=== PATIENT | male | born 1960 | race Caucasian/White ===

== ENCOUNTER 2022-07-12 11:50 | Inpatient (IN) ==
[2022-07-12] MEDS ORDERED: IOPAMIDOL 100 ML BOTTLE IV ONE (11:51)
--- NOTE | 2022-07-12 12:00 | Emergency Department Note ---
HPI General Chief complaint: Chest Pain Stated complaint: fever,cough Time Seen by Provider: 07/12/22 11:59 Source: patient Mode of arrival: ambulatory History of Present Illness HPI Narrative: Narrative: Patient is a 61-year-old male with a complex history who presents to the emergency department due to chest pain, shortness of breath, cough, and nasal congestion. Patient's daughter is an [employer] and was concerned for the possibility of sepsis, so instructed him to come to the emergency department. He states that he has end-stage renal disease and is on dialysis Tuesday, Tuesday, and Tuesday. He states he supposed to have dialysis at 1 PM, but that his daughter told him to come to the emergency department, so decided to, instead of going to dialysis. He states that his symptoms began over the weekend and have continued. He endorses general malaise, lightheadedness, nasal congestion, productive cough of green sputum, and chest pain. He states that the chest pain is a heaviness in the center of his chest without radiation. He denies palliative or provocative factors. He also endorses mild abdominal pain. He endorses pain with urination as well. He denies any other symptoms at this time. Related Data Home Medications Medication Instructions Recorded Confirmed aspirin 325 mg tablet 325 mg PO QDAY 10/20/21 06/10/22 lancets 30 gauge (BD Ultra-Fine II 10/20/21 06/10/22 Lancets) atorvastatin 80 mg tablet 80 mg PO QPM 05/24/22 06/10/22 gabapentin 100 mg capsule 100 mg PO QPM 05/24/22 06/10/22 losartan 100 mg tablet 100 mg PO QDAY PRN Hypertension 05/24/22 06/10/22 omeprazole 20 mg capsule,delayed 20 mg PO QAM 05/24/22 06/10/22 release pen needle, diabetic 32 gauge x 05/24/22 06/10/22 5/32" verapamil 180 mg tablet,extended 180 mg PO QDAY PRN Increased Blood 05/24/22 06/10/22 release Pressure Previous Rx's Medication Instructions Recorded gentamicin 0.1 % topical cream 1 applic topical QDAY #15 grams 12/21/21 tramadol 50 mg tablet 25 mg PO BID PRN pain #30 tabs 03/01/22 carvedilol 25 mg tablet (Coreg) 25 mg PO BID #180 tabs 03/16/22 glipizide 10 mg tablet 10 mg PO BID #180 tabs 03/16/22 insulin lispro 100 unit/mL 15 unit (0.15 mL) subcut TID #15 mL 03/16/22 subcutaneous pen (Humalog KwikPen (U-100) Insulin) torsemide 100 mg tablet 100 mg PO BID #180 tabs 03/16/22 Lantus Solostar U-100 Insulin 100 37 unit (0.37 mL) subcut QAM #15 mL 03/24/22 unit/mL (3 mL) subcutaneous pen (insulin glargine) oxycodone-acetaminophen 10 mg-325 1 tab PO Q4H PRN Pain #30 tabs 05/26/22 mg tablet (Endocet) verapamil 180 mg 24 hr 180 mg PO QDAY #90 caps 05/31/22 capsule,extended release blood sugar diagnostic (True #100 ea 06/07/22 Metrix Glucose Test Strip) Allergies Allergy/AdvReac Type Severity Reaction Status Date / Time No Known Drug Allergies Allergy Verified 06/10/22 11:43 Review of Systems ROS ROS Narrative: Narrative: Constitutional: Reports fever and chills; Denies weakness Eyes: Denies eye pain or vision change ENT ED: Reports rhinorrhea; Denies throat pain Cardiovascular: Reports chest pain; Denies dyspnea on exertion, orthopnea or edema Respiratory: Reports shortness of breath and cough Gastrointestinal: Reports abdominal pain; Denies nausea, vomiting, diarrhea, constipation, hematochezia or melena Genitourinary: Reports dysuria; Denies frequency or hematuria Musculoskeletal: Denies back pain or myalgia Integumentary: Denies rash or lesions Neurological: Denies headache, weakness, numbness, confusion, abnormal gait or dizziness [facility] Narrative Patient History Narrative: Narrative: Medical/Surgical/Family History All Active Problems (Updated 07/12/22 @ 15:52 by Ranjeet Watson MD) Sepsis (Acute) Acute UTI (Acute) Encounter for long-term (current) use of medications (Chronic) Elbow pain, left (Chronic) Pain in right elbow (Chronic) Rib pain on right side (Chronic) Blurred vision (Chronic) Hypertension (Chronic) Tubulovillous adenoma of colon (Chronic) Anemia (Chronic) Abdominal pain, right upper quadrant (Chronic) Colonic polyp (Chronic) Hemorrhoids (Chronic) Benign skin lesion of multiple sites (Chronic) Hyperlipidemia (Chronic) Proteinuria (Chronic) Muscle contraction headache (Chronic) Cervical muscle strain (Chronic) Headache (Chronic) History of colonoscopy (Chronic ~11/06/19) Elevated alkaline phosphatase level (Chronic) Cardiomegaly (Chronic) Fatigue (Chronic) Other dysphagia (Chronic) Lower extremity edema (Chronic) Other obesity due to excess calories (Chronic) Cerebellar stroke (Chronic) Hypokalemia (Chronic) Dysphagia (Chronic) Sleep apnea (Chronic) Seasonal allergic rhinitis (Chronic) Elevated prostate specific antigen (PSA) (Chronic) GERD (gastroesophageal reflux disease) (Chronic) Diabetic neuropathy (Chronic) Diabetes mellitus, insulin dependent (IDDM), uncontrolled (Acute) Edema (Acute) Ascites (Acute) Liver disease (Acute) Other fluid overload (Chronic) Bilateral calf pain (Acute) Back pain (Acute) Abdominal pain (Acute) RUQ abdominal pain (Acute) Screening for malignant neoplasm of colon (Acute) Peritonitis associated with peritoneal dialysis (Acute) Peritoneal dialysis catheter dysfunction (Chronic) ESRD on hemodialysis (Chronic) ESRD (end stage renal disease) (Acute) Bronchitis (Acute) Dialysis patient (Acute) Medical History (Updated 07/12/22 @ 15:52 by Ranjeet Watson MD) Abdominal pain Abdominal pain, right upper quadrant Anemia Benign skin lesion of multiple sites Blurred vision Cardiomegaly Cerebellar stroke Cervical muscle strain Colonic polyp Diabetic neuropathy Dysphagia Elbow pain, left Elevated alkaline phosphatase level Elevated prostate specific antigen (PSA) Encounter for long-term (current) use of medications Fatigue GERD (gastroesophageal reflux disease) Headache Hemorrhoids Hyperlipidemia Hypertension Hypokalemia Lower extremity edema Muscle contraction headache Other dysphagia Other obesity due to excess calories Pain in right elbow Proteinuria Rib pain on right side RUQ abdominal pain Screening for malignant neoplasm of colon Seasonal allergic rhinitis Sleep apnea Tubulovillous adenoma of colon Surgical History (Updated 06/10/22 @ 07:54 by Naida Del Rio CMA) History of abdominal surgery (12/2020) peritoneal dialysis catheter History of appendectomy History of colonoscopy (~11/06/19) 04/06/17 Dr. Lomeli - Colon polyp x 4, Hemorrhoids. History of surgery 05/26/2022-removal of peritoneal dialysis catheter Family History Father , Age 65 High blood pressure Heart attack Mother High blood pressure Social History Smoking Status: Never smoker Alcohol Intake Frequency: does not drink Substance Use: does not use Exam Narrative Narrative: Narrative: General General appearance: Present alert and in no apparent distress; Absent anxious, appears intoxicated or sleepy Head Head: Present atraumatic and normocephalic Eye Eye: Present EOMI; Absent scleral icterus or nystagmus ENT ENT: Present mucous membranes moist; Absent nasal congestion Neck Neck: Present full ROM and trachea midline Chest Chest: Present normal inspection and symmetric chest wall rise; Absent tenderness Respiratory Respiratory: Present normal lung sounds bilaterally; Absent respiratory distress or accessory muscle use Cardiovascular Cardiovascular: Present regular rate, normal rhythm and normal heart sounds Adbominal Abdominal: Present soft, tenderness and normal bowel sounds; Absent distention, guarding, rebound or rigidity Extremities Extremities: Present normal inspection and full ROM; Absent tenderness Back Back: Present normal inspection and full ROM; Absent CVA tenderness (R) or CVA tenderness (L) Neurological Neurological: Present alert and oriented X3 Psychiatric Psychiatric: Present normal affect and normal mood Skin Skin: Present warm (WNL), dry and normal color Course Vital Signs Vital signs: Vital Signs Temperature 99.0 F 07/12/22 11:53 Pulse Rate 95 H 07/12/22 11:53 Respiratory Rate 18 07/12/22 11:53 Blood Pressure 135/72 07/12/22 11:53 Pulse Oximetry (%) 98 07/12/22 11:53 Oxygen Delivery Method Room Air 07/12/22 11:53 Temperature 99.0 F 07/12/22 11:53 Pulse Rate 80 07/12/22 15:32 Respiratory Rate 13 07/12/22 15:32 Blood Pressure 134/65 07/12/22 15:32 Pulse Oximetry (%) 98 07/12/22 11:53 Oxygen Delivery Method Room Air 07/12/22 12:42 [facility] MDM Narrative Medical decision making narrative: Narrative: Patient is a 61-year-old male who presents to the emergency department due to concern for sepsis. Differential diagnoses include pneumonia, COVID, influenza, urinary tract infection. Patient's labs are consistent with a urinary tract infection. Labs and vitals are consistent with sepsis with UTI as the source. Troponin is within normal limits. Patient's chest x-ray does not demonstrate pneumonia. CT scan of the abdomen and pelvis is not demonstrate any acute findings of infectious source. Patient has received vancomycin and ceftriaxone. Due to patient's need for dialysis I will speak with Dr. Liu and then to Dr. Rincon to admit for urosepsis. I have spoken with Dr. Liu who is on board with patient being admitted and inpatient dialysis. I have spoken with Dr. Kaba and he has agreed to see and evaluate patient for admission. Lab Data 07/12/22 12:30 07/12/22 12:30 Labs: Lab Results 07/12/22 07/12/22 07/12/22 Range/Units 12:30 12:30 12:30 WBC 25.2 H (4.5-11.0) K/mcL RBC 3.31 L (4.63-6.08) M/mcL Hgb 9.6 L (13.7-17.5) g/dL Hct 29.4 L (40.1-51.0) % POC Hct (41-55) MCV 88.8 (80.0-100.0) fL MCH 29.0 (26.0-34.0) pg MCHC 32.7 (31.0-36.0) g/dL RDW 14.2 (11.5-14.5) % Plt Count 137 L (140-440) K/mcL MPV 11.7 (8.8-12.5) fL Immature Gran % (Auto) 1.2 H (0.0-0.5) % Neut % (Auto) 82.5 H (38.0-78.0) % Lymph % (Auto) 8.5 L (15.5-49.0) % [place] % (Auto) 7.3 (1.0-12.0) % Eos % (Auto) 0.1 (0.0-7.0) % Baso % (Auto) 0.4 (0.0-2.0) % Lymph # (Auto) 2.14 (1.50-4.80) K/mcL [place] # (Auto) 1.84 H (0.10-0.90) K/mcL Eos # (Auto) 0.03 (0.00-0.70) K/mcL Baso # (Auto) 0.09 (0.00-0.30) K/mcL Immature Gran # 0.30 H (0.00-0.05) K/mcl Absolute Neutrophils 20.80 H (1.80-8.00) K/mcL POC VBG pH (7.32-7.42) POC VBG pCO2 at Temp (41-51) POC VBG pO2 (25-40) POC VBG HCO3 (24-28) POC VBG Total CO2 (25-29) POC Venous O2 Sat (40-70) POC VBG Base Excess (-2-2) VBG Lactic Acid (0.5-2) POC Sodium (133-145) POC Potassium (3.3-5.1) Potassium 5.9 H* (3.3-5.1) mmol/L POC Chloride (96-108) POC Total CO2 (22-30) POC BUN (6-20) POC Creatinine (0.6-1.2) POC Glucose (70-105) POC WB Ioniz Calcium (1.16-1.32) Procalcitonin 2.62 H (<0.10) ng/mL Urine Color Urine Appearance (Clear) Urine pH (5.0-9.0) Ur Specific [place] (1.000-1.035) Urine Protein (Negative) mg/dL Urine Glucose (UA) (Negative) mg/dL Urine Ketones (Negative) mg/dL Urine Occult Blood (Negative) mg/dL Urine Nitrate (Negative) Urine Bilirubin (Negative) mg/dL Urine Urobilinogen mg/dL Ur Leukocyte Esterase (Negative) /uL Urine RBC (0-3) /hpf Urine WBC (0-4) /hpf Ur Squamous Epith Cells (0-4) /hpf Urine Bacteria (0) /hpf Ur Culture Indicated? POC Troponin I (0.00-0.08) 07/12/22 07/12/22 07/12/22 Range/Units 12:34 12:42 12:55 WBC (4.5-11.0) K/mcL RBC (4.63-6.08) M/mcL Hgb (13.7-17.5) g/dL Hct (40.1-51.0) % POC Hct 29.0 L (41-55) MCV (80.0-100.0) fL MCH (26.0-34.0) pg MCHC (31.0-36.0) g/dL RDW (11.5-14.5) % Plt Count (140-440) K/mcL MPV (8.8-12.5) fL Immature Gran % (Auto) (0.0-0.5) % Neut % (Auto) (38.0-78.0) % Lymph % (Auto) (15.5-49.0) % [place] % (Auto) (1.0-12.0) % Eos % (Auto) (0.0-7.0) % Baso % (Auto) (0.0-2.0) % Lymph # (Auto) (1.50-4.80) K/mcL [place] # (Auto) (0.10-0.90) K/mcL Eos # (Auto) (0.00-0.70) K/mcL Baso # (Auto) (0.00-0.30) K/mcL Immature Gran # (0.00-0.05) K/mcl Absolute Neutrophils (1.80-8.00) K/mcL POC VBG pH 7.40 (7.32-7.42) POC VBG pCO2 at Temp 35.3 L (41-51) POC VBG pO2 57 H (25-40) POC VBG HCO3 22.1 L (24-28) POC VBG Total CO2 23.0 L (25-29) POC Venous O2 Sat 89.0 H (40-70) POC VBG Base Excess -3.0 L (-2-2) VBG Lactic Acid 1.1 (0.5-2) POC Sodium 130 L (133-145) POC Potassium 5.8 H (3.3-5.1) Potassium (3.3-5.1) mmol/L POC Chloride 98 (96-108) POC Total CO2 23.0 (22-30) POC BUN 88 H (6-20) POC Creatinine 10.9 H* (0.6-1.2) POC Glucose 190 H (70-105) POC WB Ioniz Calcium 1.04 L (1.16-1.32) Procalcitonin (<0.10) ng/mL Urine Color Yellow Urine Appearance Turbid A (Clear) Urine pH 5.0 (5.0-9.0) Ur Specific [place] 1.018 (1.000-1.035) Urine Protein >=500 A (Negative) mg/dL Urine Glucose (UA) 50 A (Negative) mg/dL Urine Ketones Negative (Negative) mg/dL Urine Occult Blood 0.03 (Negative) mg/dL Urine Nitrate Negative (Negative) Urine Bilirubin Negative (Negative) mg/dL Urine Urobilinogen Negative mg/dL Ur Leukocyte Esterase 500 A (Negative) /uL Urine RBC 8 H (0-3) /hpf Urine WBC > 182 H (0-4) /hpf Ur Squamous Epith Cells 0 (0-4) /hpf Urine Bacteria None (0) /hpf Ur Culture Indicated? yes POC Troponin I (0.00-0.08) 07/12/22 Range/Units 15:25 WBC (4.5-11.0) K/mcL RBC (4.63-6.08) M/mcL Hgb (13.7-17.5) g/dL Hct (40.1-51.0) % POC Hct (41-55) MCV (80.0-100.0) fL MCH (26.0-34.0) pg MCHC (31.0-36.0) g/dL RDW (11.5-14.5) % Plt Count (140-440) K/mcL MPV (8.8-12.5) fL Immature Gran % (Auto) (0.0-0.5) % Neut % (Auto) (38.0-78.0) % Lymph % (Auto) (15.5-49.0) % [place] % (Auto) (1.0-12.0) % Eos % (Auto) (0.0-7.0) % Baso % (Auto) (0.0-2.0) % Lymph # (Auto) (1.50-4.80) K/mcL [place] # (Auto) (0.10-0.90) K/mcL Eos # (Auto) (0.00-0.70) K/mcL Baso # (Auto) (0.00-0.30) K/mcL Immature Gran # (0.00-0.05) K/mcl Absolute Neutrophils (1.80-8.00) K/mcL POC VBG pH (7.32-7.42) POC VBG pCO2 at Temp (41-51) POC VBG pO2 (25-40) POC VBG HCO3 (24-28) POC VBG Total CO2 (25-29) POC Venous O2 Sat (40-70) POC VBG Base Excess (-2-2) VBG Lactic Acid (0.5-2) POC Sodium (133-145) POC Potassium (3.3-5.1) Potassium (3.3-5.1) mmol/L POC Chloride (96-108) POC Total CO2 (22-30) POC BUN (6-20) POC Creatinine (0.6-1.2) POC Glucose (70-105) POC WB Ioniz Calcium (1.16-1.32) Procalcitonin (<0.10) ng/mL Urine Color Urine Appearance (Clear) Urine pH (5.0-9.0) Ur Specific [place] (1.000-1.035) Urine Protein (Negative) mg/dL Urine Glucose (UA) (Negative) mg/dL Urine Ketones (Negative) mg/dL Urine Occult Blood (Negative) mg/dL Urine Nitrate (Negative) Urine Bilirubin (Negative) mg/dL Urine Urobilinogen mg/dL Ur Leukocyte Esterase (Negative) /uL Urine RBC (0-3) /hpf Urine WBC (0-4) /hpf Ur Squamous Epith Cells (0-4) /hpf Urine Bacteria (0) /hpf Ur Culture Indicated? POC Troponin I 0.02 (0.00-0.08) ED POC Tests ED POC Tests: BUTCH - Influenza A Negative BUTCH - Influenza B Negative BUTCH - SARS Antigen Negative Discharge Plan Patient/Caregiver Discharge Instructions Pt seen by [employer]/PA only: No Clinical Impression: Sepsis, Acute UTI Patient Disposition: Xfer As Inpt ([facility]) Follow up with: Margoth Azevedo ARNP [Primary Care Provider] - Prescriptions: No Action gentamicin 0.1 % cream 1 applic topical QDAY Qty: 15 3RF tramadol 50 mg tablet 25 mg PO BID PRN (Reason: pain) Qty: 30 0RF insulin glargine [Lantus Solostar U-100 Insulin] 100 unit/mL (3 mL) insulin pen 37 unit subcut QAM Qty: 15 3RF verapamil 180 mg capsule,ext rel. pellets 24 hr 180 mg PO QDAY Qty: 90 3RF (DME) True Metrix Glucose Test Strip Strip See Rx Instructions .Route Qty: 100 1RF Rx Instructions: Use to check blood glucose twice daily fasting and once after largest meal aspirin 325 mg tablet 325 mg PO QDAY (DME) lancets [BD Ultra-Fine II Lancets] 30 gauge misc See Rx Instructions .Route Rx Instructions: As directed insulin lispro [Humalog KwikPen Insulin] 100 unit/mL insulin pen 15 unit subcut TID Qty: 15 3RF Rx Instructions: uses with sliding scale carvedilol [Coreg] 25 mg tablet 25 mg PO BID Qty: 180 2RF Rx Instructions: must administer with a meal/food glipizide 10 mg tablet 10 mg PO BID Qty: 180 3RF torsemide 100 mg tablet 100 mg PO BID Qty: 180 4RF verapamil 180 mg Tablet Extended Release 180 mg PO QDAY PRN (Reason: Increased Blood Pressure) losartan 100 mg Tablet 100 mg PO QDAY PRN (Reason: Hypertension) (DME) pen needle, diabetic 32 gauge x 5/32" needle MISCELLANEOUS QDAY atorvastatin 80 mg tablet 80 mg PO QPM omeprazole 20 mg capsule,delayed release(DR/EC) 20 mg PO QAM gabapentin 100 mg capsule 100 mg PO QPM oxycodone-acetaminophen [Endocet] 10-325 mg tablet 1 tab PO Q4H PRN (Reason: Pain) Qty: 30 0RF
[2022-07-12] MEDS ORDERED: cefTRIAXone 1 GM VIAL IV ONE ×2 (12:17→19:14)
[2022-07-12 12:48] LABS: POC Calcium, Ionized 1.04 (1.16-1.32); POC Creatinine 10.9 (0.6-1.2); POC Potassium 5.8 (3.3-5.1)
[2022-07-12 13:28] LABS: Basophils # (Auto) 0.09 K/mcL (0.00-0.30); Basophils % (Auto) 0.4 % (0.0-2.0); Eosinophils # (Auto) 0.03 K/mcL (0.00-0.70); Eosinophils % (Auto) 0.1 % (0.0-7.0); Hematocrit 29.4 % (40.1-51.0); Hemoglobin 9.6 g/dL (13.7-17.5); Lymphocytes # (Auto) 2.14 K/mcL (1.50-4.80); Lymphocytes % (Auto) 8.5 % (15.5-49.0); Mean Cell Volume 88.8 fL (80.0-100.0); Mean Corpuscular HGB Conc 32.7 g/dL (31.0-36.0); Mean Platelet Volume 11.7 fL (8.8-12.5); Monocytes # (Auto) 1.84 K/mcL (0.10-0.90); Monocytes % (Auto) 7.3 % (1.0-12.0); Neutrophils % (Auto) 82.5 % (38.0-78.0); Platelet Count 137 K/mcL (140-440); RBC 3.31 M/mcL (4.63-6.08); Red Cell Distribution Width 14.2 % (11.5-14.5); WBC 25.2 K/mcL (4.5-11.0)
[2022-07-12 13:47] LABS: Appearance,Urine TURBID (Clear); Bilirubin,Urine Negative (Negative); Color,Urine YELLOW; Culture Indicated,Urine yes; Glucose,Urine (UA) 50 mg/dL (Negative); Ketones,Urine Negative (Negative); Leukocyte Esterase,Urine 500 /uL (Negative); Nitrate,Urine Negative (Negative); Protein,Urine >=500 mg/dL (Negative); Specific Gravity,Urine 1.018 (1.000-1.035); Urine Blood 0.03 mg/dL (Negative); Urine RBC 8 /hpf (0-3); Urine Squamous Epithelial Cell 0 /hpf (0-4); Urine WBC > 182 /hpf (0-4); Urobilinogen,Urine Negative
[2022-07-12] MEDS ORDERED: CALCIUM GLUCONATE 4.65 MEQ in DEXTROSE 5% IN WATER 50 ML IV ONE (14:03)
--- NOTE | 2022-07-12 14:07 | Cat Scan Report ---
CLINICAL INFORMATION: Abdominal pain COMPARISON: None. TECHNIQUE: Following enteric contrast, 80 cc of Isovue-370 were injected intravenously, and 60 seconds later, 0.625 mm helical slices were obtained from the mid heart through the subtrochanteric regions. Following reconstruction, 2.5 mm sagittal, coronal and axial reformatted images were processed and reviewed at bone, lung and soft tissue windows. Five minutes later, 0.625 mm helical slices were obtained from the mid heart through the kidneys and viewed at soft tissue windows.The exam was performed using radiation dose optimization techniques including, but not limited to, automated exposure control, adjustment of the mA and/or kV according to patient size and use of iterative reconstruction technique. FINDINGS: The lung bases are clear. No effusions. The visualized heart is mildly enlarged. Double-lumen Port-A-Cath tip is malpositioned in the superior right ventricle. It traverses the tricuspid valve. Abdominal images show tiny nodules scattered within the gallbladder wall compatible with polyps or adenomyomatosis. The intrapancreatic and common bile ducts are normal caliber CBD is 6 mm. The liver, adrenal glands, spleen, pancreas and aorta, including aortic branches, are normal in size, configuration and attenuation without focal lesion. There is no free air, free fluid or adenopathy. Both kidneys are normal and symmetric in size, position, and configuration: The right is 9.7 cm in length and the left is 9.9 cm in length. Scattered cysts are throughout the renal parenchyma bilaterally: 10 mm superior pole right kidney: 17 mm anterior mid right kidney, 5 mm anterior mid right kidney 11 mm inferior right kidney and 6 mm inferior right kidney. On the left side there is a 15 mm low-attenuation lesion inferior pole left kidney, 24 mm mid region and 21 mm superior region. Attenuation of both kidneys is slightly inhomogeneous with perinephric stranding compatible with medical renal disease. History of end-stage renal failure acknowledged. Pelvic images show mild prostate enlargement transverse dimension 5.3 cm. There is marked thickening and trabeculation of urinary bladder wall with submucosal fat deposition. No appreciable urine seen within the urinary bladder. There is calcification seen in the seminal vesicles. Multiple diverticuli present in the sigmoid colon, but no evidence of diverticulitis. The remaining large bowel is unremarkable. The appendix is surgically absent. Small bowel and stomach are grossly normal. Surgical scar present left lower quadrant. Bone windows show no osseous abnormality. IMPRESSION: 1. No acute intra-abdominal or intrapelvic disease. 2. Marked diffuse wall thickening and trabeculation of urinary bladder with submucosal fat deposition trabeculation suggesting chronic bladder outlet narrowing due to enlarged prostate. 3. Both kidneys are lower limits of normal in size with slight inhomogeneous attenuation compatible with known medical renal disease. Scattered cysts seen throughout both kidneys. 4. Malpositioned double-lumen central venous catheter. Tip extends through the tricuspid valve into the right ventricle. Consider withdrawing the line 5 cm. Heart is mildly enlarged. 5. Tiny polyps versus adenomyomatosis of the gallbladder. 6. Sigmoid diverticulosis, but no evidence of diverticulitis Interpreted and Authenticated by: Jovon Escobar 07/12/22
--- NOTE | 2022-07-12 14:09 | XRay Report ---
CLINICAL INFORMATION: Chest pain COMPARISON: 05/24/2022. TECHNIQUE: Portable FINDINGS: Right double-lumen catheter tip is inferiorly positioned near the level the tricuspid valve. Mild cardiomegaly is stable. Mediastinum and pulmonary vessels are normal. Lungs are clear. No effusions. IMPRESSION: No acute disease. Mild cardiomegaly Interpreted and Authenticated by: Jovon Escobar 07/12/22
[2022-07-12] MEDS ORDERED: VANCOMYCIN 1,500 MG in 0.9 % SODIUM CHLORIDE 500 ML IV ONE (15:03)
--- NOTE | 2022-07-12 15:16 | Nephrology Consult Note ---
HPI Date of Consult Consult Date: 07/12/22 Requesting physician: Ranjeet Watson Primary Care Provider: Margoth Azevedo Family Provider: Thee Chen Consult Narrative Patient Information: Note initiated : 07/12/22 at 3:10 pm Service Date, if different from initiated Date: [] Patient: Yosef Chilel 61 y/o M admitted on for fever,cough. Chief Complaint: [Cough, fever and dysuria in a MWF ] Chief complaint: Chest pain, SOB, feels feverish Reason for consult: Called by ED MD to provide inpatient HD if admitted cc:: 61-year-old male dialysis patient of Dr. Chen who is currently undergoing MWF hemodialysis via a cuffed right IJ hemodialysis catheter. Prior to this in the fall 2021 he was on peritoneal dialysis but had outflow issues and could not continue this modality, the PD catheter was removed and he was converted to outpatient hemodialysis. He tells me he is awaiting potential LRD transplant from his son but this is not coming anytime soon. ED Physician Narrative: Patient is a 61-year-old male with a complex history who presents to the emergency department due to chest pain, shortness of breath, cough, and nasal congestion. Patient's daughter is an [employer] and was concerned for the possibility of sepsis, so instructed him to come to the emergency department. He states that he has end-stage renal disease and is on dialysis Tuesday, Tuesday, and Tuesday. He states he supposed to have dialysis at 1 PM, but that his daughter told him to come to the emergency department, so decided to, instead of going to dialysis. He states that his symptoms began over the weekend and have c ontinued. He endorses general malaise, lightheadedness, nasal congestion, productive cough of green sputum, and chest pain. He states that the chest pain is a heaviness in the center of his chest without radiation. He denies palliative or provocative factors. He also endorses mild abdominal pain. He endorses pain with urination as well. He denies any other symptoms at this time. 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 Genitourinary Genitourinary: dysuria Additional comments: dysuria Musculoskeletal Musculoskeletal: Present muscle weakness Integumentary Integumentary: Present change in hair; Absent non-healing lesions Neurological Neurological: Present headache(s) Psychiatric Psychiatric: Present anxiety Endocrine Endocrine: Present as per HPI PFSH PFSH All Active Problems (Updated 07/12/22 @ 20:22 by Reilly Liu MD) Volume overload (Chronic) Secondary hyperparathyroidism of renal origin (Acute) Sepsis (Acute) Acute UTI (Acute) Dialysis patient (Acute) Encounter for long-term (current) use of medications (Chronic) Elbow pain, left (Chronic) Pain in right elbow (Chronic) Rib pain on right side (Chronic) Blurred vision (Chronic) Hypertension (Chronic) Tubulovillous adenoma of colon (Chronic) Anemia (Chronic) Abdominal pain, right upper quadrant (Chronic) Colonic polyp (Chronic) Hemorrhoids (Chronic) Benign skin lesion of multiple sites (Chronic) Hyperlipidemia (Chronic) Proteinuria (Chronic) Muscle contraction headache (Chronic) Cervical muscle strain (Chronic) Headache (Chronic) History of colonoscopy (Chronic ~11/06/19) Elevated alkaline phosphatase level (Chronic) Cardiomegaly (Chronic) Fatigue (Chronic) Other dysphagia (Chronic) Lower extremity edema (Chronic) Other obesity due to excess calories (Chronic) Cerebellar stroke (Chronic) Hypokalemia (Chronic) Dysphagia (Chronic) Sleep apnea (Chronic) Seasonal allergic rhinitis (Chronic) Elevated prostate specific antigen (PSA) (Chronic) GERD (gastroesophageal reflux disease) (Chronic) Diabetic neuropathy (Chronic) Diabetes mellitus, insulin dependent (IDDM), uncontrolled (Acute) Edema (Acute) Ascites (Acute) Liver disease (Acute) Other fluid overload (Chronic) Bilateral calf pain (Acute) Back pain (Acute) Abdominal pain (Acute) RUQ abdominal pain (Acute) Screening for malignant neoplasm of colon (Acute) Peritonitis associated with peritoneal dialysis (Acute) Peritoneal dialysis catheter dysfunction (Chronic) ESRD on hemodialysis (Chronic) ESRD (end stage renal disease) (Acute) Bronchitis (Acute) Medical History (Updated 07/12/22 @ 20:22 by Reilly Liu MD) Abdominal pain Abdominal pain, right upper quadrant Anemia Benign skin lesion of multiple sites Blurred vision Cardiomegaly Cerebellar stroke Cervical muscle strain Colonic polyp Diabetic neuropathy Dysphagia Elbow pain, left Elevated alkaline phosphatase level Elevated prostate specific antigen (PSA) Encounter for long-term (current) use of medications Fatigue GERD (gastroesophageal reflux disease) Headache Hemorrhoids Hyperlipidemia Hypertension Hypokalemia Lower extremity edema Muscle contraction headache Other dysphagia Other obesity due to excess calories Pain in right elbow Proteinuria Rib pain on right side RUQ abdominal pain Screening for malignant neoplasm of colon Seasonal allergic rhinitis Sleep apnea Tubulovillous adenoma of colon Surgical History (Updated 06/10/22 @ 07:54 by Naida Del Rio CLINICAL LIAISON) History of abdominal surgery (12/2020) peritoneal dialysis catheter History of appendectomy History of colonoscopy (~11/06/19) 04/06/17 Dr. Lomeli - Colon polyp x 4, Hemorrhoids. History of surgery 05/26/2022-removal of peritoneal dialysis catheter Family History Father , Age 65 High blood pressure Heart attack Mother High blood pressure Social History marital status: occupational status: employed physical activity: none smoking status: Never smoker alcohol intake frequency: does not drink substance use type: does not use MEDS/ALLERGIES Home Medications and Allergies Home Medications Medication Instructions Recorded Confirmed Type aspirin 325 mg tablet 325 mg PO QDAY 10/20/21 07/12/22 History lancets 30 gauge (BD Ultra-Fine II 10/20/21 07/12/22 History Lancets) tramadol 50 mg tablet 25 mg PO BID PRN pain #30 tabs 03/01/22 07/12/22 Rx carvedilol 25 mg tablet (Coreg) 25 mg PO BID #180 tabs 03/16/22 07/12/22 Rx glipizide 10 mg tablet 10 mg PO BID #180 tabs 03/16/22 07/12/22 Rx insulin lispro 100 unit/mL 15 unit (0.15 mL) subcut TID #15 mL 03/16/22 07/12/22 Rx subcutaneous pen (Humalog KwikPen (U-100) Insulin) torsemide 100 mg tablet 100 mg PO BID #180 tabs 03/16/22 07/12/22 Rx Lantus Solostar U-100 Insulin 100 37 unit (0.37 mL) subcut QAM #15 mL 03/24/22 07/12/22 Rx unit/mL (3 mL) subcutaneous pen (insulin glargine) atorvastatin 80 mg tablet 80 mg PO QPM 05/24/22 07/12/22 History gabapentin 100 mg capsule 100 mg PO QPM 05/24/22 07/12/22 History omeprazole 20 mg capsule,delayed 20 mg PO QAM 05/24/22 07/12/22 History release pen needle, diabetic 32 gauge x 05/24/22 07/12/22 History 5/32" verapamil 180 mg tablet,extended 180 mg PO QDAY PRN Increased Blood 05/24/22 07/12/22 History release Pressure oxycodone-acetaminophen 10 mg-325 1 tab PO Q4H PRN Pain #30 tabs 05/26/22 07/12/22 Rx mg tablet (Endocet) blood sugar diagnostic (True #100 ea 06/07/22 07/12/22 Rx Metrix Glucose Test Strip) Allergies Allergy/AdvReac Type Severity Reaction Status Date / Time No Known Drug Allergies Allergy Verified 07/12/22 19:23 Physical Examination Vital Signs Vital signs: Temp Pulse Resp BP Pulse Ox O2 Del Method 37.2 C 87 29 H 135/72 98 Room Air 07/12/22 11:53 07/12/22 14:44 07/12/22 14:44 07/12/22 14:44 07/12/22 11:53 07/12/22 12:42 General Appearance General appearance: obese and chronically ill EENT EENT: ATNC, PERRL and mucous membranes dry Neck Neck: no JVD Respiratory Respiratory: course breath sounds and rhonchi Cardiovascular Cardiology: no murmurs, no rub, no gallops and edema Gastrointestinal Gastrointestinal: normoactive bowel sounds and no guarding Neurologic Neurologic: no focal deficit and CN 3-12 intact Musculoskeletal Musculoskeletal: no deformities Psychiatric Psychiatric: mood/affect appropriate Results Lab Results 07/12/22 12:30 07/12/22 12:30 A/P Assessment and plan (1) ESRD on hemodialysis: Assessment and plan: Dialysis tomorrow, then and Tuesday to get back on schedule Plan: Orders written for tomorrow Status: Chronic (2) Sepsis: Assessment and plan: No obvious source but catheter related infection, intra-abdominal, with UTI/Prostatitis is possible and U/A with pyuria but no bacteria seen on U/A. Sterile pyuria could be AIN (fever, pyuria and eosinophiluria rash and exposure to prior ABx), Plan: Blood cultures with HD. Urine culture pending Stool WBC Serial abdominal examines Status: Acute (3) Secondary hyperparathyroidism of renal origin: Assessment and plan: Check Ca, PO4, PTHi Status: Acute (4) Volume overload: Assessment and plan: Challenge weight with HD Echo if BP falls with edema Status: Chronic Plan 1. HD with increased fluid removal 2. Follow up cultures 3. Cultures from dialysis catheter tomorrow 4. Inflammatory biomarkers 5. MAGAN, Phosphate binders and Vit D analogues Narrative A/P Narrative: ESRD with volume overload. Check proBMP, may need echo Urine culture pending If sterile pyuria, check urine for eosinophils and urine AFB Inflammatory biomarkers Plan of Treatment: 1. HD with increased fluid removal 2. Follow up cultures 3. Cultures from dialysis catheter tomorrow 4. Inflammatory biomarkers 5. MAGAN, Phosphate binders and Vit D analogues Time Spent With Patient Time: Total time spent is greater than 50% in coordination of care (as documented) at patient's floor/unit and/or counseling patient:
--- NOTE | 2022-07-12 16:58 | Internal Med History&Physical ---
HPI History of Present Illness Patient information: Note initiated : 07/12/22 at 4:48 pm Service Date, if different from initiated Date: [] Patient: Yosef Chilel 61 y/o M admitted on for fever,cough. Chief Complaint: [] History of present illness: Mr. Chilel is a 61 year old Male with a history of insulin-dependent diabetes mellitus, hypertension, hyperlipidemia, ESRD on hemodialysis Tuesday, prior cerebellar stroke, sleep apnea, GERD who developed fevers and rigors 2 days prior to admission. The patient also says that he had a cough productive of yellowish sputum that started 3 days ago and also had burning on urination that started about 2 days ago. The patient also had intermittent chest discomforts and shortness of breath. The patient presented to the emergency department and was found to have a fever as well as a leukocytosis concerning for sepsis. Patient did have a urinalysis which was moderately suggestive of a UTI. Chest x-ray did not show any infiltrates, there was mild cardiomegaly. A CT abdomen and pelvis with contrast did not show any acute intra-abdominal or intrapelvic diseases or infectious processes. The patient's hemodialysis was malpositioned with the tip extending through the tricuspid valve into the right ventricle. Additionally, the patient was found to have hyperkalemia in the ED with a potassium level of 5.9. EKG did not show any changes secondary to hyperkalemia and also did not show any dynamic ischemic changes. Troponin level was normal. The patient was given vancomycin IV and ceftriaxone in the ED as well as calcium gluconate IV. Hospital medicine was asked to admit the patient for sepsis. Nephrology was notified regarding admission and felt the patient could be admitted to the [facility]. Unfortunately hemodialysis will not be available on the day of admission due to staffing. Review of systems Constitutional: Positive for fever and chills Eyes: no vision changes or pain Cardiovascular: Positive for intermittent chest pain, no palpitations Respiratory: Positive for cough and dyspnea Gastrointestinal: no abdominal pain, no nausea, vomiting, or diarrhea Genitourinary: Positive for dysuria Musculoskeletal: no arthralgia or myalgia Integumentary: no skin lesion or wound Neurological: no focal weakness or numbness Psychiatric: no anxiety or depression Physical exam Head: Atraumatic, normal inspection. Eyes: normal appearance, no scleral icterus. Neck: full ROM Respiratory: no respiratory distress. Cardiovascular: normal rate and rhythm, S1, S2. GI/Abdominal: Obesely distended, soft, nontender, no guarding. Extremities: full range of motion, nontender. Neurological: CN II-XII intact, intact motor, intact sensation. Psychiatric: normal mood. Skin: warm, normal color PFSH PFSH All Active Problems (Updated 07/12/22 @ 15:52 by Ranjeet Watson MD) Sepsis (Acute) Acute UTI (Acute) Encounter for long-term (current) use of medications (Chronic) Elbow pain, left (Chronic) Pain in right elbow (Chronic) Rib pain on right side (Chronic) Blurred vision (Chronic) Hypertension (Chronic) Tubulovillous adenoma of colon (Chronic) Anemia (Chronic) Abdominal pain, right upper quadrant (Chronic) Colonic polyp (Chronic) Hemorrhoids (Chronic) Benign skin lesion of multiple sites (Chronic) Hyperlipidemia (Chronic) Proteinuria (Chronic) Muscle contraction headache (Chronic) Cervical muscle strain (Chronic) Headache (Chronic) History of colonoscopy (Chronic ~11/06/19) Elevated alkaline phosphatase level (Chronic) Cardiomegaly (Chronic) Fatigue (Chronic) Other dysphagia (Chronic) Lower extremity edema (Chronic) Other obesity due to excess calories (Chronic) Cerebellar stroke (Chronic) Hypokalemia (Chronic) Dysphagia (Chronic) Sleep apnea (Chronic) Seasonal allergic rhinitis (Chronic) Elevated prostate specific antigen (PSA) (Chronic) GERD (gastroesophageal reflux disease) (Chronic) Diabetic neuropathy (Chronic) Diabetes mellitus, insulin dependent (IDDM), uncontrolled (Acute) Edema (Acute) Ascites (Acute) Liver disease (Acute) Other fluid overload (Chronic) Bilateral calf pain (Acute) Back pain (Acute) Abdominal pain (Acute) RUQ abdominal pain (Acute) Screening for malignant neoplasm of colon (Acute) Peritonitis associated with peritoneal dialysis (Acute) Peritoneal dialysis catheter dysfunction (Chronic) ESRD on hemodialysis (Chronic) ESRD (end stage renal disease) (Acute) Bronchitis (Acute) Dialysis patient (Acute) Medical History (Updated 07/12/22 @ 15:52 by Ranjeet Watson MD) Abdominal pain Abdominal pain, right upper quadrant Anemia Benign skin lesion of multiple sites Blurred vision Cardiomegaly Cerebellar stroke Cervical muscle strain Colonic polyp Diabetic neuropathy Dysphagia Elbow pain, left Elevated alkaline phosphatase level Elevated prostate specific antigen (PSA) Encounter for long-term (current) use of medications Fatigue GERD (gastroesophageal reflux disease) Headache Hemorrhoids Hyperlipidemia Hypertension Hypokalemia Lower extremity edema Muscle contraction headache Other dysphagia Other obesity due to excess calories Pain in right elbow Proteinuria Rib pain on right side RUQ abdominal pain Screening for malignant neoplasm of colon Seasonal allergic rhinitis Sleep apnea Tubulovillous adenoma of colon Surgical History (Updated 06/10/22 @ 07:54 by Naida Del Rio CMA) History of abdominal surgery (12/2020) peritoneal dialysis catheter History of appendectomy History of colonoscopy (~11/06/19) 04/06/17 Dr. Lomeli - Colon polyp x 4, Hemorrhoids. History of surgery 05/26/2022-removal of peritoneal dialysis catheter Family History Father , Age 65 High blood pressure Heart attack Mother High blood pressure Social History marital status: occupational status: employed physical activity: none smoking status: Never smoker alcohol intake frequency: does not drink substance use type: does not use MEDS/ALLERGIES Home Medications and Allergies Home Medications Medication Instructions Recorded Confirmed Type aspirin 325 mg tablet 325 mg PO QDAY 10/20/21 06/10/22 History lancets 30 gauge (BD Ultra-Fine II 10/20/21 06/10/22 History Lancets) gentamicin 0.1 % topical cream 1 applic topical QDAY #15 grams 12/21/21 06/10/22 Rx tramadol 50 mg tablet 25 mg PO BID PRN pain #30 tabs 03/01/22 06/10/22 Rx carvedilol 25 mg tablet (Coreg) 25 mg PO BID #180 tabs 03/16/22 06/10/22 Rx glipizide 10 mg tablet 10 mg PO BID #180 tabs 03/16/22 06/10/22 Rx insulin lispro 100 unit/mL 15 unit (0.15 mL) subcut TID #15 mL 03/16/22 06/10/22 Rx subcutaneous pen (Humalog KwikPen (U-100) Insulin) torsemide 100 mg tablet 100 mg PO BID #180 tabs 03/16/22 06/10/22 Rx Lantus Solostar U-100 Insulin 100 37 unit (0.37 mL) subcut QAM #15 mL 03/24/22 06/10/22 Rx unit/mL (3 mL) subcutaneous pen (insulin glargine) atorvastatin 80 mg tablet 80 mg PO QPM 05/24/22 06/10/22 History gabapentin 100 mg capsule 100 mg PO QPM 05/24/22 06/10/22 History losartan 100 mg tablet 100 mg PO QDAY PRN Hypertension 05/24/22 06/10/22 History omeprazole 20 mg capsule,delayed 20 mg PO QAM 05/24/22 06/10/22 History release pen needle, diabetic 32 gauge x 05/24/22 06/10/22 History " verapamil 180 mg tablet,extended 180 mg PO QDAY PRN Increased Blood 05/24/22 06/10/22 History release Pressure oxycodone-acetaminophen 10 mg-325 1 tab PO Q4H PRN Pain #30 tabs 05/26/22 06/10/22 Rx mg tablet (Endocet) verapamil 180 mg 24 hr 180 mg PO QDAY #90 caps 05/31/22 06/10/22 Rx capsule,extended release blood sugar diagnostic (True #100 ea 06/07/22 06/10/22 Rx Metrix Glucose Test Strip) Allergies Allergy/AdvReac Type Severity Reaction Status Date / Time No Known Drug Allergies Allergy Verified 06/10/22 11:43 EXAM Constitutional Vitals: Temp Pulse Resp BP Pulse Ox O2 Del Method 99.0 F 78 15 143/70 98 Room Air 07/12/22 11:53 07/12/22 16:02 07/12/22 16:02 07/12/22 16:02 07/12/22 11:53 07/12/22 16:02 DATA Data Completed and Pending Labs: Labs from last 24 hours 07/12/22 07/12/22 07/12/22 15:25 12:55 12:42 WBC RBC Hgb Hct POC Hct 29.0 L MCV MCH MCHC RDW Plt Count MPV Immature Gran % (Auto) Neut % (Auto) Lymph % (Auto) [place] % (Auto) Eos % (Auto) Baso % (Auto) Lymph # (Auto) [place] # (Auto) Eos # (Auto) Baso # (Auto) Immature Gran # Absolute Neutrophils POC VBG pH POC VBG pCO2 at Temp POC VBG pO2 POC VBG HCO3 POC VBG Total CO2 POC Venous O2 Sat POC VBG Base Excess VBG Lactic Acid POC Sodium 130 L POC Potassium 5.8 H Potassium POC Chloride 98 POC Total CO2 23.0 POC BUN 88 H POC Creatinine 10.9 H* POC Glucose 190 H POC WB Ioniz Calcium 1.04 L Procalcitonin Urine Color Yellow Urine Appearance Turbid A Urine pH 5.0 Ur Specific [place] 1.018 Urine Protein >=500 A Urine Glucose (UA) 50 A Urine Ketones Negative Urine Occult Blood 0.03 Urine Nitrate Negative Urine Bilirubin Negative Urine Urobilinogen Negative Ur Leukocyte Esterase 500 A Urine RBC 8 H Urine WBC > 182 H Ur Squamous Epith Cells 0 Urine Bacteria None Ur Culture Indicated? yes POC Troponin I 0.02 07/12/22 07/12/22 07/12/22 12:34 12:30 12:30 WBC RBC Hgb Hct POC Hct MCV MCH MCHC RDW Plt Count MPV Immature Gran % (Auto) Neut % (Auto) Lymph % (Auto) [place] % (Auto) Eos % (Auto) Baso % (Auto) Lymph # (Auto) [place] # (Auto) Eos # (Auto) Baso # (Auto) Immature Gran # Absolute Neutrophils POC VBG pH 7.40 POC VBG pCO2 at Temp 35.3 L POC VBG pO2 57 H POC VBG HCO3 22.1 L POC VBG Total CO2 23.0 L POC Venous O2 Sat 89.0 H POC VBG Base Excess -3.0 L VBG Lactic Acid 1.1 POC Sodium POC Potassium Potassium 5.9 H* POC Chloride POC Total CO2 POC BUN POC Creatinine POC Glucose POC WB Ioniz Calcium Procalcitonin 2.62 H Urine Color Urine Appearance Urine pH Ur Specific [place] Urine Protein Urine Glucose (UA) Urine Ketones Urine Occult Blood Urine Nitrate Urine Bilirubin Urine Urobilinogen Ur Leukocyte Esterase Urine RBC Urine WBC Ur Squamous Epith Cells Urine Bacteria Ur Culture Indicated? POC Troponin I 07/12/22 12:30 WBC 25.2 H RBC 3.31 L Hgb 9.6 L Hct 29.4 L POC Hct MCV 88.8 MCH 29.0 MCHC 32.7 RDW 14.2 Plt Count 137 L MPV 11.7 Immature Gran % (Auto) 1.2 H Neut % (Auto) 82.5 H Lymph % (Auto) 8.5 L [place] % (Auto) 7.3 Eos % (Auto) 0.1 Baso % (Auto) 0.4 Lymph # (Auto) 2.14 [place] # (Auto) 1.84 H Eos # (Auto) 0.03 Baso # (Auto) 0.09 Immature Gran # 0.30 H Absolute Neutrophils 20.80 H POC VBG pH POC VBG pCO2 at Temp POC VBG pO2 POC VBG HCO3 POC VBG Total CO2 POC Venous O2 Sat POC VBG Base Excess VBG Lactic Acid POC Sodium POC Potassium Potassium POC Chloride POC Total CO2 POC BUN POC Creatinine POC Glucose POC WB Ioniz Calcium Procalcitonin Urine Color Urine Appearance Urine pH Ur Specific [place] Urine Protein Urine Glucose (UA) Urine Ketones Urine Occult Blood Urine Nitrate Urine Bilirubin Urine Urobilinogen Ur Leukocyte Esterase Urine RBC Urine WBC Ur Squamous Epith Cells Urine Bacteria Ur Culture Indicated? POC Troponin I A/P Narrative A/P Narrative: Assessment: 61-year-old male with a history of insulin-dependent diabetes mellitus, hypertension, hyperlipidemia, ESRD on hemodialysis via tunneled hemodialysis catheter, prior cerebellar stroke, sleep apnea, GERD admitted for sepsis probably secondary to UTI. Less likely but more serious infectious possibility would be bacteremia associated with central line catheter. The patient was hemodynamically stable in the ED, lactic acid was normal. Procalc itonin was elevated at 2.62. The patient also had hyperkalemia in the ED. #Sepsis probably secondary to UTI however at risk for CLABSI #Hyperkalemia in ESRD patient #Moderate volume overload due to ESRD #Mild thrombocytopenia possibly due to sepsis #Hyper hyponatremia, mild #Insulin-dependent diabetes mellitus #Chronic anemia due to ESRD #Hypertension #Hyperlipidemia #History of cerebellar stroke #Obstructive sleep apnea #GERD #Malpositioned tunneled HD catheter in right ventricle Plan -Vancomycin IV dosed by pharmacy and ceftriaxone 2 g IV every 24 hours for now. -Follow urine and blood cultures. -If blood cultures result positive for a gram-positive organism, consider CLABSI. -Lasix 80 mg IV now and tomorrow morning. -Recheck potassium this evening, if still elevated consider Kayexalate. -equipment monitor phototypesetting until hyperkalemia resolves. -Lantus 20 units at bedtime and correction Humalog SSI medium dose for now. -Home medication reconciliation, resume important home medications. -Nephrology consulted, planning for hemodialysis tomorrow. -Renal and diabetic diet. -PT consult. -DVT prophylaxis: Heparin SQ -Disposition: Admit to inpatient PCU, anticipate 2 to 3 days of hospitalization if all goes well. After discharge recommend referral back to the provider that placed the HD catheter to consider pulling back the catheter out of the right ventricle. Time Spent With Patient Time: Total time spent is greater than 50% in coordination of care (as documented) at patient's floor/unit and/or counseling patient:
[2022-07-12] MEDS ORDERED: VANCOMYCIN PER PHARMACY IV ONE (19:14)
[2022-07-12] MEDS ORDERED: ONDANSETRON 4 MG/2 ML VIAL IV PRN (19:14)
[2022-07-12] MEDS ORDERED: DEXTROSE 50% 50 ML VIAL IV PRN (19:14)
[2022-07-12] MEDS ORDERED: SENNOSIDES 1 TABLET PO PRN (19:14)
[2022-07-12] MEDS ORDERED: DEXTROSE 31 GM ORAL.SUSP PO PRN (19:14)
[2022-07-12] MEDS: DOCUSATE SODIUM 100 MG CAPSULE PO SCH (19:59)
[2022-07-12] MEDS: 0.9 % SODIUM CHLORIDE 10 ML SYRINGE IV SCH (20:05)
[2022-07-12] MEDS: GABAPENTIN 100 MG CAPSULE PO SCH (20:05)
[2022-07-12] MEDS: FUROSEMIDE 100 MG/10 ML VIAL IV SCH (20:05)
[2022-07-12] MEDS: ATORVASTATIN 40 MG TABLET PO SCH (20:05)
[2022-07-12] MEDS: HEPARIN 5,000 UNIT/ML VIAL SQ SCH (20:05)
[2022-07-12] MEDS: INSULIN LISPRO 1 UNIT/0.01 ML UNIT SQ SCH ×2 (20:20)
[2022-07-12] MEDS: INSULIN GLARGINE, HUMAN 1 UNIT/0.01 ML SQ SCH (20:21)
[2022-07-12 20:25] LABS: ALT/SGPT 10 U/L (<40); AST/SGOT 14 U/L (<40); Albumin 3.8 gm/dL (3.2-5.2); Albumin/Globulin Ratio 1.1 (1.0-2.3); Alkaline Phosphatase 114 U/L (39-117); Bilirubin,Direct < 0.2 mg/dL (0-0.3); Bilirubin,Total 0.3 mg/dL (0.1-1.0); Blood Urea Nitrogen 83 mg/dL (8-23); Calcium 9.1 mg/dL (8.6-10.4); Carbon Dioxide 21 mmol/L (22-30); Chloride 91 mmol/L (96-108); Globulin 3.5 gm/dL (2.2-3.7); Glomerular Filtration Rate 7; Glucose 140 mg/dL (70-105); Lactate Dehydrogenase 305 U/L (135-225); Phosphorous 3.7 mg/dL (2.5-4.5); Triglycerides 224 mg/dL (<150); Uric Acid 7.2 mg/dL (2.5-8.0)
[2022-07-12 23:15] LABS: Albumin 3.9 gm/dL (3.2-5.2); Blood Urea Nitrogen 82 mg/dL (8-23); Calcium 8.7 mg/dL (8.6-10.4); Carbon Dioxide 20 mmol/L (22-30); Chloride 92 mmol/L (96-108); Glomerular Filtration Rate 6; Glucose 176 mg/dL (70-105); Phosphorous 4.5 mg/dL (2.5-4.5)
[2022-07-12] MEDS ORDERED: SODIUM POLYSTYRENE SULFONATE 15 GM/60 ML SUSPENSION PO ONE (23:22)
[2022-07-12] MEDS ORDERED: SODIUM POLYSTYRENE SULFONATE 15 GM/60 ML SUSPENSION ONE (23:25)
[2022-07-13] MEDS: oxyCODONE/APAP 10/325MG TABLET PO PRN ×2 (01:54→18:29)
[2022-07-13 02:22] LABS: Albumin 3.6 gm/dL (3.2-5.2); Blood Urea Nitrogen 86 mg/dL (8-23); Calcium 8.8 mg/dL (8.6-10.4); Carbon Dioxide 21 mmol/L (22-30); Chloride 93 mmol/L (96-108); Glomerular Filtration Rate 6; Glucose 163 mg/dL (70-105); Phosphorous 4.5 mg/dL (2.5-4.5)
[2022-07-13] MEDS: 0.9 % SODIUM CHLORIDE 10 ML SYRINGE IV SCH ×3 (05:21→20:07)
[2022-07-13 06:56] LABS: Basophils # (Auto) 0.08 K/mcL (0.00-0.30); Basophils % (Auto) 0.4 % (0.0-2.0); Eosinophils # (Auto) 0.16 K/mcL (0.00-0.70); Eosinophils % (Auto) 0.7 % (0.0-7.0); Hematocrit 30.9 % (40.1-51.0); Hemoglobin 9.9 g/dL (13.7-17.5); Lymphocytes # (Auto) 1.95 K/mcL (1.50-4.80); Mean Cell Volume 90.4 fL (80.0-100.0); Mean Platelet Volume 11.8 fL (8.8-12.5); Monocytes # (Auto) 1.63 K/mcL (0.10-0.90); Monocytes % (Auto) 7.5 % (1.0-12.0); Neutrophils % (Auto) 81.8 % (38.0-78.0); Platelet Count 161 K/mcL (140-440); RBC 3.42 M/mcL (4.63-6.08); Red Cell Distribution Width 14.6 % (11.5-14.5); WBC 21.7 K/mcL (4.5-11.0)
--- NOTE | 2022-07-13 07:06 | Nephrology Progress Note ---
SUBJECTIVE Subjective Patient information: Note initiated : 07/13/22 at 7:05 am Service Date, if different from initiated Date: [] Patient: Yosef Chilel 61 y/o M admitted on 07/12/22 for fever,cough. Chief Complaint: [SOB, weakness] Principal diagnosis: ESRD Interval history: HD evaluation #1 No fever or hypotension. WBC 21K Dialysis this AM Given Ceftriaxone q24 hr No vanco Treating presumptive UTI/Prostatitis Last mo PD catheter removed. Has temporary cuffed HD catheter since Mar 2022. Attempting 5 liter U/F with Albumin support Pertinent ROS: Nothing new Additional PMFSH (Level 3 Only): nothing new Constitutional Vitals: Vital Signs Temp Pulse Resp BP Pulse Ox O2 Del Method 37.3 C H 92 H 15 173/80 95 Room Air 07/13/22 06:48 07/13/22 06:02 07/13/22 06:02 07/13/22 06:02 07/13/22 06:02 07/12/22 18:33 Period Temp Pulse Resp BP Sys/Matute Pulse Ox O2 Del Method O2 Flow Rate Last 24 Hr 36.7 C-37.3 C 76-95 12-29 123-176/57-117 95-100 Room Air-Room Air Intake and Output 07/12/22 07/13/22 07/13/22 19:59 03:59 11:59 Intake Total 560 100 460 Output Total 150 1000 350 Balance 410 -900 110 Weight 118.388 kg Intake & Output: Intake & Output 07/12/22 07/13/22 07/13/22 19:59 03:59 11:59 Intake Total 560 100 460 Output Total 150 1000 350 Balance 410 -900 110 Weight 118.388 kg Intake: IV 560 Calcium Gluconate 4.65 Meq In 60 Dextrose 5% in Water 50 ml @ 100 mls/hr IV ONCE ONE Rx#: [id number] Vancomycin 1,500 mg In Sodium 500 Chloride 0.9% 500 ml @ 333.3 mls/hr IV ONCE ONE Rx#: [id number] Oral 100 460 Output: Void Amount 150 50 350 Urine/Stool Mix 950 Other: Meal Nourishment/Supplement Percent of Meal Consumed 100% Feeding Ability Assist with Tray Set Up Urine Appearance Cloudy Cloudy Cloudy Urine Color Yellow Yellow Yellow Urine Odor Normal Stool Size Copious Stool Color Brown Stool Consistency Liquid Watery Loose # Voids 1 # Bowel Movements 1 General appearance: average body habitus Head Head exam: Present normal inspection Eye Eye exam: Present EOMI and PERRL ENT ENT exam: Present mucous membranes moist Neck Neck exam: Absent meningismus Respiratory Respiratory exam: Present decreased breath sounds and rhonchi; Absent rales Cardiovascular Cardiovascular exam: Present RRR, +S1 and +S2; Absent rubs GI/Abdominal GI/Abdominal exam: Present soft and hypoactive bowel sounds Extremities Exam Extremities exam: Present pedal edema Neurological Exam Neurological exam: Present alert and CN II-XII intact Psychiatric Psychiatric exam: Present normal affect Skin Skin exam: Present dry and intact A/P Assessment and plan (1) Volume overload: Assessment and plan: Decrease dry weight with aggressive fluid removal and albumin for BP support Status: Chronic (2) Secondary hyperparathyroidism of renal origin: Status: Acute (3) ESRD on hemodialysis: Status: Chronic Narrative Plan of Treatment: 1. HD with increased fluid removal 2. Follow up cultures 3. Cultures from dialysis catheter tomorrow 4. Inflammatory biomarkers 5. MAGAN, Phosphate binders and Vit D analogues Time Spent With Patient Time: Total time spent is greater than 50% in coordination of care (as documented) at patient's floor/unit and/or counseling patient:
[2022-07-13] MEDS: INSULIN LISPRO 1 UNIT/0.01 ML UNIT SQ SCH ×4 (07:28→20:07)
[2022-07-13 07:35] LABS: ALT/SGPT 12 U/L (<40); AST/SGOT 11 U/L (<40); Albumin 3.7 gm/dL (3.2-5.2); Alkaline Phosphatase 118 U/L (39-117); Bilirubin,Direct < 0.2 mg/dL (0-0.3); Bilirubin,Total 0.2 mg/dL (0.1-1.0); Blood Urea Nitrogen 84 mg/dL (8-23); Calcium 8.8 mg/dL (8.6-10.4); Carbon Dioxide 20 mmol/L (22-30); Chloride 94 mmol/L (96-108); Globulin 3.7 gm/dL (2.2-3.7); Glomerular Filtration Rate 6; Glucose 106 mg/dL (70-105); Lactate Dehydrogenase 274 U/L (135-225); Phosphorous 5.1 mg/dL (2.5-4.5); Triglycerides 244 mg/dL (<150); Uric Acid 8.2 mg/dL (2.5-8.0)
[2022-07-13] MEDS: FUROSEMIDE 100 MG/10 ML VIAL IV SCH (07:47)
[2022-07-13] MEDS: HEPARIN 5,000 UNIT/ML VIAL SQ SCH ×2 (07:47→20:06)
[2022-07-13] MEDS: CARVEDILOL 12.5 MG TABLET PO SCH ×2 (07:48→17:18)
[2022-07-13] MEDS: ASPIRIN 325 MG ENTERIC COATED TABLET PO SCH (07:48)
[2022-07-13] MEDS: DOCUSATE SODIUM 100 MG CAPSULE PO SCH ×2 (07:49→19:49)
[2022-07-13] MEDS: OMEPRAZOLE 20 MG CAPSULE PO SCH (07:49)
[2022-07-13] MEDS: ACETAMINOPHEN 325 MG TABLET PO PRN ×2 (07:49→15:59)
[2022-07-13] MEDS ORDERED: cefTRIAXone 2 GM in DEXTROSE 5% IN WATER 50 ML IV SCH (09:00)
--- NOTE | 2022-07-13 09:31 | EKG ---
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
[2022-07-13] MEDS ORDERED: VANCOMYCIN PER PHARMACY IV SCH (10:30)
[2022-07-13] MEDS ORDERED: VANCOMYCIN 500 MG in 0.9 % SODIUM CHLORIDE 100 ML IV ONE (17:30)
--- NOTE | 2022-07-13 18:21 | Internal Med Progress Note ---
SUBJECTIVE Subjective Patient information: Note initiated : 07/13/22 at 6:15 pm Service Date, if different from initiated Date: [] Patient: Yosef Chilel 61 y/o M admitted on 07/12/22 for fever,cough. Chief Complaint: [] Principal diagnosis: ESRD Interval history: Mr. Chilel is a 61 year old Male with a history of insulin-dependent diabetes mellitus, hypertension, hyperlipidemia, ESRD on hemodialysis Tuesday, prior cerebellar stroke, sleep apnea, GERD who developed fevers and rigors 2 days prior to admission. The patient also says that he had a cough productive of yellowish sputum that started 3 days ago and also had burning on urination that started about 2 days ago. The patient also had intermittent chest discomforts and shortness of breath. The patient presented to the emergency department and was found to have a fever as well as a leukocytosis concerning for sepsis. Patient did have a urinalysis which was moderately suggestive of a UTI. Chest x-ray did not show any infiltrates, there was mild cardiomegaly. A CT abdomen and pelvis with contrast did not show any acute intra-abdominal or intrapelvic diseases or infectious processes. The patient's hemodialysis was malpositioned with the tip extending through the tricuspid valve into the right ventricle. Additionally, the patient was found to have hyperkalemia in the ED with a potassium level of 5.9. EKG did not show any changes secondary to hyperkalemia and also did not show any dynamic ischemic changes. Troponin level was normal. The patient was given vancomycin IV and ceftriaxone in the ED as well as calcium gluconate IV. Hospital medicine was asked to admit the patient for sepsis. Nephrology was notified regarding admission and felt the [facility]. Unfortunately hemodialysis will not be available on the day of admission due to staffing. 07/13 The patient continues to have fevers, urine culture growing gram-negative bacilli. Started cefepime and discontinued ceftriaxone. Continue vancomycin IV dosed by pharmacy for now pending blood culture results. If blood cultures did not grow any organisms will discontinue vancomycin. Patient received hemodialysis today. Potassium level has normalized. Physical exam Head: Atraumatic, normal inspection. Eyes: normal appearance, no scleral icterus. Neck: full ROM Respiratory: no respiratory distress. Cardiovascular: normal rate and rhythm, S1, S2, right upper chest tunneled HD catheter GI/Abdominal: Obesely distended, soft, nontender, no guarding. Extremities: full range of motion, nontender. Neurological: CN II-XII intact, intact motor, intact sensation. Psychiatric: normal mood. Skin: warm, normal color Constitutional Vitals: Vital Signs Temp Pulse Resp BP Pulse Ox O2 Del Method 102.2 F H 112 H 14 126/71 96 Room Air 07/13/22 16:02 07/13/22 16:02 07/13/22 16:02 07/13/22 16:02 07/13/22 16:02 07/13/22 16:02 Period Temp Pulse Resp BP Sys/Matute Pulse Ox O2 Del Method O2 Flow Rate Last 24 Hr 98.0 F-102.2 F 76-112 10-24 97-187/58-138 93-100 Room Air-Room Air Intake and Output 07/13/22 07/13/22 07/13/22 03:59 11:59 19:59 Intake Total 100 460 50 Output Total 4718 104 9530 Balance - Weight 118.388 kg Patient Weight 07/14/22 03:59 Weight 118.388 kg Intake & Output: Intake & Output 07/13/22 07/13/22 07/13/22 03:59 11:59 19:59 Intake Total 100 460 50 Output Total 3829 101 3206 Balance - Weight 118.388 kg Intake: IV 50 Rocephin 2 gm In Dextrose 5% in 50 Water 50 ml @ 100 mls/hr IV Q24H [facility] Rx#:[id number] Oral 100 460 Output: Void Amount 50 550 Urine/Stool Mix 950 Hemodialysis UF 5000 Other: Meal Nourishment/Supplement Breakfast Lunch Percent of Meal Consumed 100% 75% Refused Feeding Ability Assist with Tray Set Up Assist with Tray Set Up Urine Appearance Cloudy Clear Urine Color Yellow Pale Stool Size Copious Stool Color Brown Stool Consistency Liquid Watery Loose # Voids 1 1 # Bowel Movements 1 OBJ DATA Labs 07/13/22 05:36 07/13/22 05:35 Labs: Abnormal Lab Results 07/13/22 07/13/22 07/13/22 11:50 05:36 05:35 WBC 21.7 H RBC 3.42 L Hgb 9.9 L Hct 30.9 L POC Hct RDW 14.6 H Plt Count Immature Gran % (Auto) 0.6 H Neut % (Auto) 81.8 H Lymph % (Auto) 9.0 L [place] # (Auto) 1.63 H Immature Gran # 0.14 H Absolute Neutrophils 17.72 H POC VBG pCO2 at Temp POC VBG pO2 POC VBG HCO3 POC VBG Total CO2 POC Venous O2 Sat POC VBG Base Excess POC Sodium Sodium POC Potassium Potassium Chloride Carbon Dioxide Anion Gap POC BUN BUN Creatinine POC Creatinine Glucose POC Glucose Uric Acid POC WB Ioniz Calcium Phosphorus Alkaline Phosphatase Lactate Dehydrogenase NT-Pro-B Natriuret Pep 7668.0 H Triglycerides Procalcitonin PTH Intact 279.8 H Urine Appearance Urine Protein Urine Glucose (UA) Ur Leukocyte Esterase Urine RBC Urine WBC 07/13/22 07/13/22 07/12/22 05:35 01:30 21:43 WBC RBC Hgb Hct POC Hct RDW Plt Count Immature Gran % (Auto) Neut % (Auto) Lymph % (Auto) [place] # (Auto) Immature Gran # Absolute Neutrophils POC VBG pCO2 at Temp POC VBG pO2 POC VBG HCO3 POC VBG Total CO2 POC Venous O2 Sat POC VBG Base Excess POC Sodium Sodium 132 L 131 L POC Potassium Potassium 6.1 H* Chloride 94 L 93 L 92 L Carbon Dioxide 20 L 21 L 20 L Anion Gap 19.0 H 18.0 H 19.0 H POC BUN BUN 84 H 86 H 82 H Creatinine 8.6 H* 8.7 H* 8.6 H* POC Creatinine Glucose 106 H 163 H 176 H POC Glucose Uric Acid 8.2 H POC WB Ioniz Calcium Phosphorus 5.1 H Alkaline Phosphatase 118 H Lactate Dehydrogenase 274 H NT-Pro-B Natriuret Pep Triglycerides 244 H Procalcitonin PTH Intact Urine Appearance Urine Protein Urine Glucose (UA) Ur Leukocyte Esterase Urine RBC Urine WBC 07/12/22 07/12/22 07/12/22 12:55 12:42 12:34 WBC RBC Hgb Hct POC Hct 29.0 L RDW Plt Count Immature Gran % (Auto) Neut % (Auto) Lymph % (Auto) [place] # (Auto) Immature Gran # Absolute Neutrophils POC VBG pCO2 at Temp 35.3 L POC VBG pO2 57 H POC VBG HCO3 22.1 L POC VBG Total CO2 23.0 L POC Venous O2 Sat 89.0 H POC VBG Base Excess -3.0 L POC Sodium 130 L Sodium POC Potassium 5.8 H Potassium Chloride Carbon Dioxide Anion Gap POC BUN 88 H BUN Creatinine POC Creatinine 10.9 H* Glucose POC Glucose 190 H Uric Acid POC WB Ioniz Calcium 1.04 L Phosphorus Alkaline Phosphatase Lactate Dehydrogenase NT-Pro-B Natriuret Pep Triglycerides Procalcitonin PTH Intact Urine Appearance Turbid A Urine Protein >=500 A Urine Glucose (UA) 50 A Ur Leukocyte Esterase 500 A Urine RBC 8 H Urine WBC > 182 H 07/12/22 07/12/22 07/12/22 12:30 12:30 12:30 WBC RBC Hgb Hct POC Hct RDW Plt Count Immature Gran % (Auto) Neut % (Auto) Lymph % (Auto) [place] # (Auto) Immature Gran # Absolute Neutrophils POC VBG pCO2 at Temp POC VBG pO2 POC VBG HCO3 POC VBG Total CO2 POC Venous O2 Sat POC VBG Base Excess POC Sodium Sodium 129 L POC Potassium Potassium 5.9 H* 5.9 H* Chloride 91 L Carbon Dioxide 21 L Anion Gap 17.0 H POC BUN BUN 83 H Creatinine 7.9 H* POC Creatinine Glucose 140 H POC Glucose Uric Acid POC WB Ioniz Calcium Phosphorus Alkaline Phosphatase Lactate Dehydrogenase 305 H NT-Pro-B Natriuret Pep Triglycerides 224 H Procalcitonin 2.62 H PTH Intact Urine Appearance Urine Protein Urine Glucose (UA) Ur Leukocyte Esterase Urine RBC Urine WBC 07/12/22 12:30 WBC 25.2 H RBC 3.31 L Hgb 9.6 L Hct 29.4 L POC Hct RDW Plt Count 137 L Immature Gran % (Auto) 1.2 H Neut % (Auto) 82.5 H Lymph % (Auto) 8.5 L [place] # (Auto) 1.84 H Immature Gran # 0.30 H Absolute Neutrophils 20.80 H POC VBG pCO2 at Temp POC VBG pO2 POC VBG HCO3 POC VBG Total CO2 POC Venous O2 Sat POC VBG Base Excess POC Sodium Sodium POC Potassium Potassium Chloride Carbon Dioxide Anion Gap POC BUN BUN Creatinine POC Creatinine Glucose POC Glucose Uric Acid POC WB Ioniz Calcium Phosphorus Alkaline Phosphatase Lactate Dehydrogenase NT-Pro-B Natriuret Pep Triglycerides Procalcitonin PTH Intact Urine Appearance Urine Protein Urine Glucose (UA) Ur Leukocyte Esterase Urine RBC Urine WBC Meds: Medications Acetaminophen (Acetaminophen 325 Mg Tablet) 650 mg PO Q6HP PRN; Protocol PRN Reason: Per Pain Protocol/Fever > 101 Last Admin: 03/07/23 15:59 Dose: 650 mg Hydrocodone Bitart/Acetaminophen (Hydrocodone/Apap 5/325mg Tablet) 1 tab PO Q4HP PRN; Protocol PRN Reason: Per Pain Protocol Aspirin (Aspirin 325 Mg Enteric Coated Tablet) 325 mg PO DAILY [facility] Last Admin: 07/13/22 07:48 Dose: 325 mg Atorvastatin Calcium (Atorvastatin 40 Mg Tablet) 80 mg PO HS [facility] Last Admin: 07/12/22 20:05 Dose: 80 mg Carvedilol (Carvedilol 12.5 Mg Tablet) 25 mg PO BIDCC [facility] Last Admin: 07/13/22 17:18 Dose: 25 mg Cefepime HCl (Cefepime 1 Gm Vial) 1 gm IV Q24H [facility]; Protocol Dextrose (Dextrose 50% 50 Ml Vial) 0 ml IV UD PRN PRN Reason: Per Sliding Scale Diagnostic Test (Pha) (Accu-Chek 1 Each Strip) 1 each FS ACHS [facility] Last Admin: 07/13/22 16:40 Dose: 1 each Docusate Sodium (Docusate Sodium 100 Mg Capsule) 100 mg PO BID [facility] Last Admin: 07/13/22 07:49 Dose: Not Given Gabapentin (Gabapentin 100 Mg Capsule) 100 mg PO QPM [facility] Last Admin: 07/12/22 20:05 Dose: 100 mg Glucose (Dextrose 31 Gm Oral.Susp) 15 gm PO PRN PRN PRN Reason: Hypoglycemia Heparin Sodium (Porcine) (Heparin 5,000 Unit/Ml Vial) 5,000 unit SQ Q12 [facility] Last Admin: 07/13/22 07:47 Dose: 5,000 unit Albumin Human (Buminate) 12.5 gm in 50 mls @ 100 mls/hr IV ONCE PRN PRN Reason: Hypotension Vancomycin HCl 500 mg/ Sodium (Chloride) 100 mls @ 100 mls/hr IV ONCE ONE Stop: 07/13/22 18:29 Last Admin: 07/13/22 17:40 Dose: 100 mls/hr Insulin Glargine (Insulin Glargine, Human 1 Unit/0.01 Ml) 20 unit SQ [facility] Last Admin: 07/12/22 20:21 Dose: Not Given Insulin Human Lispro (Insulin Lispro 1 Unit/0.01 Ml Unit) 0 unit SQ [facility]; Protocol Last Admin: 07/13/22 17:18 Dose: 2 unit Lactulose (Lactulose 20 Gm/30 Ml Oral.Erika) 10 gm PO DAILYP PRN PRN Reason: Constipation Omeprazole (Omeprazole 20 Mg Capsule) 20 mg PO QAM [facility] Last Admin: 07/13/22 07:49 Dose: 20 mg Ondansetron HCl (Ondansetron 4 Mg/2 Ml Vial) 4 mg IV Q4HP PRN; Protocol PRN Reason: Nausea And Vomiting Oxycodone/Acetaminophen (Oxycodone/Apap 10/325mg Tablet) 1 tab PO Q4HP PRN; Protocol PRN Reason: Pain Last Admin: 07/13/22 01:54 Dose: 1 tab Senna (Sennosides 1 Tablet) 2 tab PO HSP PRN PRN Reason: Constipation Sodium Chloride (0.9 % Sodium Chloride 10 Ml Syringe) 10 ml IV Q8 [facility] Last Admin: 07/13/22 13:10 Dose: 10 ml Vancomycin HCl (Vancomycin Per Pharmacy) 1 order IV UD [facility]; Protocol A/P Narrative A/P Narrative: Assessment: 61-year-old male with a history of insulin-dependent diabetes mellitus, hypertension, hyperlipidemia, ESRD on hemodialysis via tunneled hemodialysis catheter, prior cerebellar stroke, sleep apnea, GERD admitted for sepsis probably secondary to UTI. Less likely but more serious infectious possibility would be bacteremia associated with central line catheter. The patient was hemodynamically stable in the ED, lactic acid was normal. Procalcitonin was elevated at 2.62. The patient also had hyperkalemia in the ED. #Sepsis probably secondary to UTI however at risk for CLABSI #Resolved hyperkalemia #Moderate volume overload due to ESRD #Resolved thrombocytopenia possibly due to sepsis #Resolved hyponatremia #Insulin-dependent diabetes mellitus #Chronic anemia due to ESRD #Hypertension #Hyperlipidemia #History of cerebellar stroke #Obstructive sleep apnea #GERD #Malpositioned tunneled HD catheter in right ventricle Plan -Vancomycin IV dosed by pharmacy and cefepime 1 g every 24 hours for now. -Discontinued ceftriaxone and started cefepime due to persistent fevers. -Follow urine and blood cultures. -If blood cultures result positive for a gram-positive organism, consider CLABSI. -Lantus 20 units at bedtime and correction Humalog SSI medium dose for now. -Home medication reconciliation, resume important home medications. -Nephrology following. -Renal and diabetic diet. -PT consult. -DVT prophylaxis: Heparin SQ -Disposition: Inpatient PCU, anticipate 2 to 3 days of hospitalization if all goes well. After discharge recommend referral back to the provider that placed the HD catheter to consider pulling back the catheter out of the right v entricle. Plan of Treatment: 1. HD with increased fluid removal 2. Follow up cultures 3. Cultures from dialysis catheter tomorrow 4. Inflammatory biomarkers 5. MAGAN, Phosphate binders and Vit D analogues Time Spent With Patient Time: Total time spent is greater than 50% in coordination of care (as documented) at patient's floor/unit and/or counseling patient: QUALITY VTE Deep Vein Thrombosis/Pulmonary Embolism Present on Admission: No
[2022-07-13] MEDS ORDERED: DIAZEPAM 5 MG TABLET PO PRN (18:26)
[2022-07-13] MEDS ORDERED: CEFEPIME 1 GM VIAL ONE (18:36)
[2022-07-13] MEDS ORDERED: DIAZEPAM 5 MG TABLET ONE (18:36)
[2022-07-13] MEDS ORDERED: CEFEPIME 1 GM VIAL IV SCH (19:00)
[2022-07-13] MEDS: INSULIN GLARGINE, HUMAN 1 UNIT/0.01 ML SQ SCH (19:54)
[2022-07-13] MEDS: ATORVASTATIN 40 MG TABLET PO SCH (20:06)
[2022-07-13] MEDS: GABAPENTIN 100 MG CAPSULE PO SCH (20:06)
[2022-07-13] MEDS ORDERED: ALBUMIN HUMAN 12.5 GM/50 ML VIAL IV PRN (20:53)
[2022-07-14] MEDS: 0.9 % SODIUM CHLORIDE 10 ML SYRINGE IV SCH ×3 (05:40→21:40)
[2022-07-14 06:45] LABS: Basophils % (Auto) 0.5 % (0.0-2.0); Eosinophils # (Auto) 0.12 K/mcL (0.00-0.70); Eosinophils % (Auto) 0.6 % (0.0-7.0); Hematocrit 32.9 % (40.1-51.0); Hemoglobin 10.4 g/dL (13.7-17.5); Lymphocytes # (Auto) 1.87 K/mcL (1.50-4.80); Mean Cell Volume 91.9 fL (80.0-100.0); Mean Corpuscular HGB Conc 31.6 g/dL (31.0-36.0); Mean Platelet Volume 11.8 fL (8.8-12.5); Monocytes # (Auto) 1.88 K/mcL (0.10-0.90); Monocytes % (Auto) 10.1 % (1.0-12.0); Platelet Count 215 K/mcL (140-440); RBC 3.58 M/mcL (4.63-6.08); Red Cell Distribution Width 14.6 % (11.5-14.5); WBC 18.6 K/mcL (4.5-11.0)
[2022-07-14 06:50] LABS: ALT/SGPT 25 U/L (<40); AST/SGOT 27 U/L (<40); Albumin 3.8 gm/dL (3.2-5.2); Albumin/Globulin Ratio 0.9 (1.0-2.3); Alkaline Phosphatase 129 U/L (39-117); Bilirubin,Direct < 0.2 mg/dL (0-0.3); Bilirubin,Total 0.2 mg/dL (0.1-1.0); Blood Urea Nitrogen 43 mg/dL (8-23); Calcium 8.6 mg/dL (8.6-10.4); Carbon Dioxide 23 mmol/L (22-30); Chloride 88 mmol/L (96-108); Globulin 4.4 gm/dL (2.2-3.7); Glomerular Filtration Rate 8; Glucose 123 mg/dL (70-105); Lactate Dehydrogenase 286 U/L (135-225); Phosphorous 5.6 mg/dL (2.5-4.5); Triglycerides 339 mg/dL (<150); Uric Acid 4.7 mg/dL (2.5-8.0)
[2022-07-14] MEDS: DOCUSATE SODIUM 100 MG CAPSULE PO SCH ×2 (07:04→20:20)
[2022-07-14] MEDS: INSULIN LISPRO 1 UNIT/0.01 ML UNIT SQ SCH ×4 (07:21→20:20)
[2022-07-14] MEDS ORDERED: MEROPENEM 0.5 GM in 0.9 % SODIUM CHLORIDE 50 ML IV SCH (07:45)
[2022-07-14] MEDS: HEPARIN 5,000 UNIT/ML VIAL SQ SCH ×2 (08:32→20:20)
[2022-07-14] MEDS: ASPIRIN 325 MG ENTERIC COATED TABLET PO SCH (08:32)
[2022-07-14] MEDS: OMEPRAZOLE 20 MG CAPSULE PO SCH (08:33)
[2022-07-14] MEDS: CARVEDILOL 12.5 MG TABLET PO SCH ×2 (08:33→16:55)
[2022-07-14] MEDS: INSULIN GLARGINE, HUMAN 1 UNIT/0.01 ML SQ SCH (08:33)
--- NOTE | 2022-07-14 08:50 | Nephrology Progress Note ---
SUBJECTIVE Subjective Patient information: Note initiated : 07/14/22 at 8:49 am Service Date, if different from initiated Date: [] Patient: Yosef Chilel 61 y/o M admitted on 07/12/22 for fever,cough. Chief Complaint: Weakiness and subjective fever[] Principal diagnosis: ESRD Interval history: Gm negative sepsis with urinary tract source Rigors, chills and fever present Laboratory Tests 07/12/22 07/14/22 12:30 05:31 Procalcitonin 2.62 H 10.33 H Seen at the start of dialysis and monitored periodically. Complaining of back pain when asked for how long he said 6 months wants to sit in a chair I told him he could not do that because his acute medical issues with gram-negative sepsis and the risk of hypotension on dialysis. He received 25 g of albumin for blood pressure support tried to negotiate coming off dialysis early but he stated his full 3-1/2-hour treatment and 2500 cc of fluid were removed. Next treatment on Saturday, July 16, 2022. 1 dose of gentamicin 165 mg given at the end of dialysis. Switch to meropenem due to oral report of ESBL organism. Pertinent ROS: (+) fever chill and rigors (+) urne and blood cultures with GNR (+) Back pain but according to the patient this is 6 months in duration Additional PMFSH (Level 3 Only): N/A Nothing new Constitutional Vitals: Vital Signs Temp Pulse Resp BP Pulse Ox O2 Del Method 37.7 C H 101 H 16 131/76 94 Room Air 07/14/22 04:01 07/14/22 04:01 07/14/22 04:01 07/14/22 04:01 07/14/22 04:01 07/13/22 16:02 Period Temp Pulse Resp BP Sys/Matute Pulse Ox O2 Del Method O2 Flow Rate Last 24 Hr 36.7 C-39.0 C 94-112 10-24 97-168/58-138 93-100 Room Air-Room Air Intake and Output 07/13/22 07/14/22 07/14/22 19:59 03:59 11:59 Intake Total 50 160 Output Total 5000 10 Balance -4950 150 Weight 118.388 kg 113.58 kg Intake & Output: Intake & Output 07/13/22 07/14/22 07/14/22 19:59 03:59 11:59 Intake Total 50 160 Output Total 5000 10 Balance -4950 150 Weight 118.388 kg 113.58 kg Intake: IV 50 100 Vancomycin 500 mg In Sodium 100 Chloride 0.9% 100 ml @ 100 mls/ hr IV ONCE ONE Rx#:[id number] Rocephin 2 gm In Dextrose 5% in 50 Water 50 ml @ 100 mls/hr IV Q24H [facility] Rx#:[id number] Oral 60 Output: Void Amount 10 Hemodialysis UF 5000 Other: Meal Lunch Dinner Percent of Meal Consumed Refused 25% Feeding Ability Assist with Tray Set Up Urine Appearance Clear Cloudy Purulent Urine Color Dark [place] # Voids 1 General appearance: mild distress and obese Exam: Complaining of pain in the back Head Head exam: Present normal inspection Eye Eye exam: Present EOMI and PERRL; Absent scleral icterus ENT ENT exam: Present mucous membranes dry Neck Neck exam: Absent meningismus Respiratory Respiratory exam: Present CTAB Cardiovascular Cardiovascular exam: Present normal rate and rhythm, +S1 and +S2; Absent systolic murmur GI/Abdominal GI/Abdominal exam: Present diminished bowel sounds and tenderness Extremities Exam Extremities exam: Absent pedal edema Back Exam Back exam: Present CVA tenderness (L) and CVA tenderness (R) Neurological Exam Neurological exam: Present alert, CN II-XII intact and oriented X3 Psychiatric Psychiatric exam: Present anxious Skin Skin exam: Present dry and intact A/P Assessment and plan (1) Gram negative sepsis: Assessment and plan: Fever curve does not suggest a temporal relationship with dialysis therefore I did leave the catheter in place as this is not a gram-positive infection but gram-negative septicemia from urinary or prostatic origin. Slight improvement in white count with increase in procalcitonin level. Awaiting final ID and sensitivities of the gram-negative lane. Status: Acute (2) ESRD on hemodialysis: Assessment and plan: Back to Tuesday dialysis He seems under dialyzed so I have increased this time to 3.5 to 4 hours Status: Chronic (3) Volume overload: Assessment and plan: Seems to be at his dry weight or below disease requiring albumin for blood pressure support Status: Chronic (4) Secondary hyperparathyroidism of renal origin: Assessment and plan: Calcium at the low end of normal phosphorus at the high end of acceptable Status: Acute Narrative Plan of Treatment: 1. HD with increased fluid removal 2. Follow up cultures 3. Utine and blood cultures (+) GNR 4. Inflammatory biomarkers 5. MAGAN, Phosphate binders and Vit D analogues 6. Gent 165 mg x 1 dose 7. Merropenin given by Hospital medicine 8. This seems like urosepsis so leave catheter in place Time Spent With Patient Time: Total time spent is greater than 50% in coordination of care (as documented) at patient's floor/unit and/or counseling patient:
[2022-07-14] MEDS ORDERED: GENTAMICIN PER PHARMACY IV ONE (09:00)
[2022-07-14] MEDS: oxyCODONE/APAP 10/325MG TABLET PO PRN ×2 (10:55→23:06)
[2022-07-14] MEDS: ALBUMIN HUMAN 12.5 GM/50 ML VIAL IV PRN ×2 (12:54→14:02)
[2022-07-14] MEDS: ACETAMINOPHEN 325 MG TABLET PO PRN ×2 (12:55→19:30)
--- NOTE | 2022-07-14 13:08 | Internal Med Progress Note ---
SUBJECTIVE Subjective Patient information: Note initiated : 07/14/22 at 1:04 pm Service Date, if different from initiated Date: [] Patient: Yosef Chilel 61 y/o M admitted on 07/12/22 for fever,cough. Chief Complaint: [] Principal diagnosis: ESRD Interval history: Mr. Chilel is a 61 year old Male with a history of insulin-dependent diabetes mellitus, hypertension, hyperlipidemia, ESRD on hemodialysis Tuesday, prior cerebellar stroke, sleep apnea, GERD who developed fevers and rigors 2 days prior to admission. The patient also says that he had a cough productive of yellowish sputum that started 3 days ago and also had burning on urination that started about 2 days ago. The patient also had intermittent chest discomforts and shortness of breath. The patient presented to the emergency department and was found to have a fever as well as a leukocytosis concerning for sepsis. Patient did have a urinalysis which was moderately suggestive of a UTI. Chest x-ray did not show any infiltrates, there was mild cardiomegaly. A CT abdomen and pelvis with contrast did not show any acute intra-abdominal or intrapelvic diseases or infectious processes. The patient's hemodialysis was malpositioned with the tip extending through the tricuspid valve into the right ventricle. Additionally, the patient was found to have hyperkalemia in the ED with a potassium level of 5.9. EKG did not show any changes secondary to hyperkalemia and also did not show any dynamic ischemic changes. Troponin level was normal. The patient was given vancomycin IV and ceftriaxone in the ED as well as calcium gluconate IV. Hospital medicine was asked to admit the patient for sepsis. Nephrology was notified regarding admission and felt the patient could be admitted to the [facility]. Unfortunately hemodialysis will not be available on the day of admission due to staffing. 07/13 The patient continues to have fevers, urine culture growing gram-negative bacilli. Started cefepime and discontinued ceftriaxone. Continue vancomycin IV dosed by pharmacy for now pending blood culture results. If blood cultures did not grow any organisms will discontinue vancomycin. Patient received hemodialysis today. Potassium level has normalized. 07/14 Patient had a high-grade temperatures overnight. Microbiology notified that gram-negative bacilli is E. coli very suspicious for ESBL. Meropenem started, discontinue the cefepime. Physical exam Head: Atraumatic, normal inspection. Eyes: normal appearance, no scleral icterus. Neck: full ROM Respiratory: no respiratory distress. Cardiovascular: normal rate and rhythm, S1, S2, right upper chest tunneled HD catheter GI/Abdominal: Obesely distended, soft, nontender, no guarding. Extremities: full range of motion, nontender. Neurological: CN II-XII intact, intact motor, intact sensation. Psychiatric: normal mood. Skin: warm, normal color Constitutional Vitals: Vital Signs Temp Pulse Resp BP Pulse Ox O2 Del Method O2 Flow Rate 98.1 F 99 H 16 111/56 94 Nasal Cannula 2 07/14/22 12:05 07/14/22 12:58 07/14/22 12:45 07/14/22 12:58 07/14/22 12:45 07/14/22 12:45 07/14/22 12:45 Period Temp Pulse Resp BP Sys/Matute Pulse Ox O2 Del Method O2 Flow Rate Last 24 Hr 98.1 F-102.2 F 87-112 12-25 85-168/41-138 83-99 Nasal Cannula- Room Air 2-2 Intake and Output 07/14/22 07/14/22 07/14/22 03:59 11:59 19:59 Intake Total 160 240 Output Total 10 50 Balance 150 190 Weight 113.58 kg Intake & Output: Intake & Output 07/14/22 07/14/22 07/14/22 03:59 11:59 19:59 Intake Total 160 240 Output Total 10 50 Balance 150 190 Weight 113.58 kg Intake: IV 100 Vancomycin 500 mg In Sodium 100 Chloride 0.9% 100 ml @ 100 mls/ hr IV ONCE ONE Rx#:[id number] Oral 60 240 Output: Void Amount 10 50 Other: Meal Dinner Breakfast Percent of Meal Consumed 25% 100% Feeding Ability Assist with Tray Set Up Assist with Tray Set Up Urine Appearance Clear Cloudy Purulent Urine Color Dark Anne Dark Alden OBJ DATA Labs 07/14/22 05:30 07/14/22 05:30 Labs: Abnormal Lab Results 07/14/22 07/14/22 07/14/22 05:31 05:30 05:30 WBC 18.6 H RBC 3.58 L Hgb 10.4 L Hct 32.9 L POC Hct RDW 14.6 H Plt Count Immature Gran % (Auto) 0.8 H Neut % (Auto) Lymph % (Auto) 10.0 L Chaves # (Auto) 1.88 H Immature Gran # 0.14 H Absolute Neutrophils 14.51 H POC VBG pCO2 at Temp POC VBG pO2 POC VBG HCO3 POC VBG Total CO2 POC Venous O2 Sat POC VBG Base Excess POC Sodium Sodium 131 L POC Potassium Potassium Chloride 88 L Carbon Dioxide Anion Gap 20.0 H POC BUN BUN 43 H Creatinine 6.4 H* POC Creatinine Glucose 123 H POC Glucose Uric Acid POC WB Ioniz Calcium Phosphorus 5.6 H Alkaline Phosphatase 129 H Lactate Dehydrogenase 286 H NT-Pro-B Natriuret Pep Globulin 4.4 H Albumin/Globulin Ratio 0.9 L Triglycerides 339 H Procalcitonin 10.33 H PTH Intact Urine Appearance Urine Protein Urine Glucose (UA) Ur Leukocyte Esterase Urine RBC Urine WBC 07/13/22 07/13/22 07/13/22 11:50 05:36 05:35 WBC 21.7 H RBC 3.42 L Hgb 9.9 L Hct 30.9 L POC Hct RDW 14.6 H Plt Count Immature Gran % (Auto) 0.6 H Neut % (Auto) 81.8 H Lymph % (Auto) 9.0 L Chaves # (Auto) 1.63 H Immature Gran # 0.14 H Absolute Neutrophils 17.72 H POC VBG pCO2 at Temp POC VBG pO2 POC VBG HCO3 POC VBG Total CO2 POC Venous O2 Sat POC VBG Base Excess POC Sodium Sodium POC Potassium Potassium Chloride Carbon Dioxide Anion Gap POC BUN BUN Creatinine POC Creatinine Glucose POC Glucose Uric Acid POC WB Ioniz Calcium Phosphorus Alkaline Phosphatase Lactate Dehydrogenase NT-Pro-B Natriuret Pep 7668.0 H Globulin Albumin/Globulin Ratio Triglycerides Procalcitonin PTH Intact 279.8 H Urine Appearance Urine Protein Urine Glucose (UA) Ur Leukocyte Esterase Urine RBC Urine WBC 07/13/22 07/13/22 07/12/22 05:35 01:30 21:43 WBC RBC Hgb Hct POC Hct RDW Plt Count Immature Gran % (Auto) Neut % (Auto) Lymph % (Auto) Chaves # (Auto) Immature Gran # Absolute Neutrophils POC VBG pCO2 at Temp POC VBG pO2 POC VBG HCO3 POC VBG Total CO2 POC Venous O2 Sat POC VBG Base Excess POC Sodium Sodium 132 L 131 L POC Potassium Potassium 6.1 H* Chloride 94 L 93 L 92 L Carbon Dioxide 20 L 21 L 20 L Anion Gap 19.0 H 18.0 H 19.0 H POC BUN BUN 84 H 86 H 82 H Creatinine 8.6 H* 8.7 H* 8.6 H* POC Creatinine Glucose 106 H 163 H 176 H POC Glucose Uric Acid 8.2 H POC WB Ioniz Calcium Phosphorus 5.1 H Alkaline Phosphatase 118 H Lactate Dehydrogenase 274 H NT-Pro-B Natriuret Pep Globulin Albumin/Globulin Ratio Triglycerides 244 H Procalcitonin PTH Intact Urine Appearance Urine Protein Urine Glucose (UA) Ur Leukocyte Esterase Urine RBC Urine WBC 07/12/22 07/12/22 07/12/22 12:55 12:42 12:34 WBC RBC Hgb Hct POC Hct 29.0 L RDW Plt Count Immature Gran % (Auto) Neut % (Auto) Lymph % (Auto) Chaves # (Auto) Immature Gran # Absolute Neutrophils POC VBG pCO2 at Temp 35.3 L POC VBG pO2 57 H POC VBG HCO3 22.1 L POC VBG Total CO2 23.0 L POC Venous O2 Sat 89.0 H POC VBG Base Excess -3.0 L POC Sodium 130 L Sodium POC Potassium 5.8 H Potassium Chloride Carbon Dioxide Anion Gap POC BUN 88 H BUN Creatinine POC Creatinine 10.9 H* Glucose POC Glucose 190 H Uric Acid POC WB Ioniz Calcium 1.04 L Phosphorus Alkaline Phosphatase Lactate Dehydrogenase NT-Pro-B Natriuret Pep Globulin Albumin/Globulin Ratio Triglycerides Procalcitonin PTH Intact Urine Appearance Turbid A Urine Protein >=500 A Urine Glucose (UA) 50 A Ur Leukocyte Esterase 500 A Urine RBC 8 H Urine WBC > 182 H 07/12/22 07/12/22 07/12/22 12:30 12:30 12:30 WBC RBC Hgb Hct POC Hct RDW Plt Count Immature Gran % (Auto) Neut % (Auto) Lymph % (Auto) Chaves # (Auto) Immature Gran # Absolute Neutrophils POC VBG pCO2 at Temp POC VBG pO2 POC VBG HCO3 POC VBG Total CO2 POC Venous O2 Sat POC VBG Base Excess POC Sodium Sodium 129 L POC Potassium Potassium 5.9 H* 5.9 H* Chloride 91 L Carbon Dioxide 21 L Anion Gap 17.0 H POC BUN BUN 83 H Creatinine 7.9 H* POC Creatinine Glucose 140 H POC Glucose Uric Acid POC WB Ioniz Calcium Phosphorus Alkaline Phosphatase Lactate Dehydrogenase 305 H NT-Pro-B Natriuret Pep Globulin Albumin/Globulin Ratio Triglycerides 224 H Procalcitonin 2.62 H PTH Intact Urine Appearance Urine Protein Urine Glucose (UA) Ur Leukocyte Esterase Urine RBC Urine WBC 07/12/22 12:30 WBC 25.2 H RBC 3.31 L Hgb 9.6 L Hct 29.4 L POC Hct RDW Plt Count 137 L Immature Gran % (Auto) 1.2 H Neut % (Auto) 82.5 H Lymph % (Auto) 8.5 L Chaves # (Auto) 1.84 H Immature Gran # 0.30 H Absolute Neutrophils 20.80 H POC VBG pCO2 at Temp POC VBG pO2 POC VBG HCO3 POC VBG Total CO2 POC Venous O2 Sat POC VBG Base Excess POC Sodium Sodium POC Potassium Potassium Chloride Carbon Dioxide Anion Gap POC BUN BUN Creatinine POC Creatinine Glucose POC Glucose Uric Acid POC WB Ioniz Calcium Phosphorus Alkaline Phosphatase Lactate Dehydrogenase NT-Pro-B Natriuret Pep Globulin Albumin/Globulin Ratio Triglycerides Procalcitonin PTH Intact Urine Appearance Urine Protein Urine Glucose (UA) Ur Leukocyte Esterase Urine RBC Urine WBC Meds: Medications Acetaminophen (Acetaminophen 325 Mg Tablet) 650 mg PO Q6HP PRN; Protocol PRN Reason: Per Pain Protocol/Fever > 101 Last Admin: 07/14/22 12:55 Dose: 650 mg Hydrocodone Bitart/Acetaminophen (Hydrocodone/Apap 5/325mg Tablet) 1 tab PO Q4HP PRN; Protocol PRN Reason: Per Pain Protocol Aspirin (Aspirin 325 Mg Enteric Coated Tablet) 325 mg PO DAILY [facility] Last Admin: 07/14/22 08:32 Dose: 325 mg Atorvastatin Calcium (Atorvastatin 40 Mg Tablet) 80 mg PO HS [facility] Last Admin: 07/13/22 20:06 Dose: 80 mg Carvedilol (Carvedilol 12.5 Mg Tablet) 25 mg PO BIDCC [facility] Last Admin: 07/14/22 08:33 Dose: Not Given Dextrose (Dextrose 50% 50 Ml Vial) 0 ml IV UD PRN PRN Reason: Per Sliding Scale Diagnostic Test (Pha) (Accu-Chek 1 Each Strip) 1 each FS ACHS [facility] Last Admin: 07/14/22 12:18 Dose: 1 each Diazepam (Diazepam 5 Mg Tablet) 5 mg PO TIDP PRN PRN Reason: Anxiety Last Admin: 07/13/22 20:06 Dose: 5 mg Docusate Sodium (Docusate Sodium 100 Mg Capsule) 100 mg PO BID [facility] Last Admin: 07/14/22 07:04 Dose: Not Given Gabapentin (Gabapentin 100 Mg Capsule) 100 mg PO QPM [facility] Last Admin: 07/13/22 20:06 Dose: 100 mg Glucose (Dextrose 31 Gm Oral.Susp) 15 gm PO PRN PRN PRN Reason: Hypoglycemia Heparin Sodium (Porcine) (Heparin 5,000 Unit/Ml Vial) 5,000 unit SQ Q12 [facility] Last Admin: 07/14/22 08:32 Dose: 5,000 unit Albumin Human (Buminate) 12.5 gm in 50 mls @ 100 mls/hr IV ONCE PRN PRN Reason: Hypotension Last Admin: 07/14/22 12:54 Dose: 100 mls/hr Albumin Human (Buminate) 12.5 gm in 50 mls @ 100 mls/hr IV PRN PRN PRN Reason: Hypotension Meropenem 1 gm/ Sodium (Chloride) 50 mls @ 100 mls/hr IV Q24H [facility] Gentamicin Sulfate 165 mg/ (Sodium Chloride) 254.125 mls @ 250 mls/hr IV ONCE ONE Stop: 07/14/22 18:00 Insulin Glargine (Insulin Glargine, Human 1 Unit/0.01 Ml) 20 unit SQ DAILY [facility] Last Admin: 07/14/22 08:33 Dose: 20 unit Insulin Human Lispro (Insulin Lispro 1 Unit/0.01 Ml Unit) 0 unit SQ ACHS [facility]; Protocol Last Admin: 07/14/22 12:18 Dose: Not Given Lactulose (Lactulose 20 Gm/30 Ml Oral.Erika) 10 gm PO DAILYP PRN PRN Reason: Constipation Omeprazole (Omeprazole 20 Mg Capsule) 20 mg PO QAM [facility] Last Admin: 07/14/22 08:33 Dose: 20 mg Ondansetron HCl (Ondansetron 4 Mg/2 Ml Vial) 4 mg IV Q4HP PRN; Protocol PRN Reason: Nausea And Vomiting Oxycodone/Acetaminophen (Oxycodone/Apap 10/325mg Tablet) 1 tab PO Q4HP PRN; Protocol PRN Reason: Pain Last Admin: 07/14/22 10:55 Dose: 1 tab Senna (Sennosides 1 Tablet) 2 tab PO HSP PRN PRN Reason: Constipation Sodium Chloride (0.9 % Sodium Chloride 10 Ml Syringe) 10 ml IV Q8 [facility] Last Admin: 07/14/22 05:40 Dose: 10 ml A/P Narrative A/P Narrative: Assessment: 61-year-old male with a history of insulin-dependent diabetes mellitus, hypertension, hyperlipidemia, ESRD on hemodialysis via tunneled hemodialysis catheter, prior cerebellar stroke, sleep apnea, GERD admitted for sepsis secondary to UTI and complicated by gram-negative bacteremia. #Sepsis secondary to pyelonephritis complicated by gram-negative bacteremia #Probable ESBL UTI and bacteremia #Insulin-dependent diabetes mellitus #Chronic anemia due to ESRD #Hypertension #Hyperlipidemia #History of cerebellar stroke #Obstructive sleep apnea #GERD #Malpositioned tunneled HD catheter in right ventricle Plan -Start renally dosed meropenem. -Discontinue vancomycin and cefepime. -Follow urine and blood cultures. -Lantus 20 units at bedtime and correction Humalog SSI medium dose for now. -Repeat HD catheter blood cultures tomorrow. -Continue home aspirin, Lipitor, Coreg, omeprazole, Percocet. -Nephrology following. -Renal and diabetic diet. -PT consult. -DVT prophylaxis: Heparin SQ -Disposition: Inpatient PCU, anticipate 2 to 3 days of hospitalization if all goes well. Anticipate at least 14 days of IV antibiotic treatment. After discharge recommend referral back to the provider that placed the HD catheter to consider pulling back the catheter out of the right ventricle. Plan of Treatment: 1. HD with increased fluid removal 2. Follow up cultures 3. Cultures from dialysis catheter tomorrow 4. Inflammatory biomarkers 5. MAGAN, Phosphate binders and Vit D analogues Time Spent With Patient Time: Total time spent is greater than 50% in coordination of care (as documented) at patient's floor/unit and/or counseling patient: QUALITY VTE Deep Vein Thrombosis/Pulmonary Embolism Present on Admission: No
[2022-07-14 13:09] LABS: Blood Urea Nitrogen 48 mg/dL (8-23)
[2022-07-14] MEDS: MEROPENEM 1 GM in 0.9 % SODIUM CHLORIDE 50 ML IV SCH (15:47)
[2022-07-14 16:23] LABS: Blood Urea Nitrogen 14 mg/dL (8-23)
[2022-07-14] MEDS ORDERED: GENTAMICIN SULFATE IV ONE (17:00)
[2022-07-14] MEDS ORDERED: SODIUM CHLORIDE 0.9% IV ONE (17:00)
[2022-07-14] MEDS: ATORVASTATIN 40 MG TABLET PO SCH (20:20)
[2022-07-14] MEDS: GABAPENTIN 100 MG CAPSULE PO SCH (20:20)
[2022-07-14] MEDS: LACTULOSE 20 GM/30 ML ORAL.SOL PO PRN (23:45)
[2022-07-15] MEDS: HYDROcodone/APAP 5/325MG TABLET PO PRN (00:30)
[2022-07-15] MEDS: 0.9 % SODIUM CHLORIDE 10 ML SYRINGE IV SCH ×3 (05:15→21:07)
[2022-07-15 06:22] LABS: Basophils # (Auto) 0.09 K/mcL (0.00-0.30); Basophils % (Auto) 0.8 % (0.0-2.0); Eosinophils # (Auto) 0.27 K/mcL (0.00-0.70); Eosinophils % (Auto) 2.3 % (0.0-7.0); Hematocrit 33.7 % (40.1-51.0); Hemoglobin 10.5 g/dL (13.7-17.5); Lymphocytes # (Auto) 1.99 K/mcL (1.50-4.80); Lymphocytes % (Auto) 16.9 % (15.5-49.0); Mean Cell Volume 93.6 fL (80.0-100.0); Mean Corpuscular HGB Conc 31.2 g/dL (31.0-36.0); Mean Platelet Volume 11.6 fL (8.8-12.5); Monocytes # (Auto) 2.04 K/mcL (0.10-0.90); Monocytes % (Auto) 17.3 % (1.0-12.0); Neutrophils % (Auto) 61.3 % (38.0-78.0); Platelet Count 218 K/mcL (140-440); Red Cell Distribution Width 14.5 % (11.5-14.5); WBC 11.8 K/mcL (4.5-11.0)
--- NOTE | 2022-07-15 06:25 | Nephrology Progress Note ---
SUBJECTIVE Subjective Patient information: Note initiated : 07/15/22 at 6:24 am Service Date, if different from initiated Date: [] Patient: Yosef Chilel 61 y/o M admitted on 07/12/22 for fever,cough. Chief Complaint: [Weakness] Principal diagnosis: ESRD Interval history: Antibiotic change Gm negative sepsis identified Fever curve improving Presumed urinary tract source urine with Gm Neg rods on 07/12/2022 but no ID yet f rom PRL or sensitivities Neg blood culture on 07/12/2022 E coli in blood from HD catheter x2 on 07/13/22 x 2 but no sensitivities yet Neg blood culture from HD catheter x 2 on 07/14/2022 Complaining of low back pain for 6 months and doesn't want to do HD lying flat...has to here in ICU Complaining of increased saliva production since CVA last year. Pertinent ROS: Back pain Wants to go home Additional PMFSH (Level 3 Only): Nothing new Constitutional Vitals: Vital Signs Temp Pulse Resp BP Pulse Ox O2 Del Method O2 Flow Rate 37.7 C H 83 14 121/62 99 Nasal Cannula 2 07/15/22 06:01 07/15/22 06:01 07/15/22 06:01 07/15/22 06:01 07/15/22 06:01 07/15/22 06:01 07/15/22 06:01 Period Temp Pulse Resp BP Sys/Matute Pulse Ox O2 Del Method O2 Flow Rate Last 24 Hr 35.9 C-37.9 C 83-103 - 79-155/29-104 80-100 Nasal Cannula- Room Air 2-2 Intake and Output 07/14/22 07/15/22 07/15/22 19:59 03:59 11:59 Intake Total 794.125 698 Output Total 2500 Balance -1705.875 698 Weight 111.72 kg Intake & Output: Intake & Output 07/14/22 07/15/22 07/15/22 19:59 03:59 11:59 Intake Total 794.125 698 Output Total 2500 Balance -1705.875 698 Weight 111.72 kg Intake: IV 404.125 Gentamicin Sulfate 165 mg In 254.125 Sodium Chloride 0.9% 250 ml @ 250 mls/hr IV ONCE ONE Rx#: [id number] Merrem 1 gm In Sodium Chloride 50 0.9% 50 ml @ 100 mls/hr IV Q24H [facility] Rx#:[id number] Oral 390 218 GI Tube Flush 480 Output: Hemodialysis UF 2500 Other: Meal Dinner Nourishment/Supplement Percent of Meal Consumed 75% 100% Feeding Ability Independent Independent Nourishment/Supplement name Tomato soup General appearance: mild distress and obese Exam: Complaining of pain in the back Head Head exam: Present normal inspection Eye Eye exam: Present EOMI and PERRL; Absent scleral icterus ENT ENT exam: Present mucous membranes dry Neck Neck exam: Absent meningismus Respiratory Respiratory exam: Present CTAB Cardiovascular Cardiovascular exam: Present normal rate and rhythm, +S1 and +S2; Absent systolic murmur GI/Abdominal GI/Abdominal exam: Present diminished bowel sounds and tenderness Extremities Exam Extremities exam: Absent pedal edema Back Exam Back exam: Present CVA tenderness (L) and CVA tenderness (R) Neurological Exam Neurological exam: Present alert, CN II-XII intact and oriented X3 Psychiatric Psychiatric exam: Present anxious Skin Skin exam: Present dry and intact A/P Assessment and plan (1) Gram negative sepsis: Assessment and plan: Presumed urinary tract origin but need I&D from PRL and sensitivities to see if same bacteria is in the urine and blood. Needs at least 2 weeks of IV ABx Not clear if catheter is involved but I can tell you it is pushed thru the tricuspid valve and enters the RV making him at risk for VTACH and should be removed and replaced Status: Acute (2) ESRD on hemodialysis: Assessment and plan: HD q MWF Status: Chronic (3) Secondary hyperparathyroidism of renal origin: Assessment and plan: monitor Status: Acute Narrative Plan of Treatment: 1. HD with increased fluid removal 2. Follow up cultures tomorrow from peripheral site and HD catheter. 3. Urine and blood cultures (+) GNR/and E coli respectively 4. Inflammatory biomarkers 5. MAGAN, Phosphate binders and Vit D analogues 6. Gent 165 mg x 1 dose 07/14 and check post HD level tomorrow to redose 7. Merropenin given by Hospital medicine 8. This seems like urosepsis so leave catheter in place for now. 9. URR 67% which is just above the 65% minimum with a 3.5 hr run Time Spent With Patient Time: Total time spent is greater than 50% in coordination of care (as documented) at patient's floor/unit and/or counseling patient:
[2022-07-15] MEDS: CARVEDILOL 12.5 MG TABLET PO SCH ×2 (08:17→17:36)
[2022-07-15] MEDS: INSULIN LISPRO 1 UNIT/0.01 ML UNIT SQ SCH ×4 (08:17→20:26)
[2022-07-15] MEDS: ASPIRIN 325 MG ENTERIC COATED TABLET PO SCH (08:46)
[2022-07-15] MEDS: HEPARIN 5,000 UNIT/ML VIAL SQ SCH ×2 (08:46→20:26)
[2022-07-15] MEDS: DOCUSATE SODIUM 100 MG CAPSULE PO SCH ×2 (08:46→20:26)
[2022-07-15] MEDS: OMEPRAZOLE 20 MG CAPSULE PO SCH (08:47)
[2022-07-15] MEDS: INSULIN GLARGINE, HUMAN 1 UNIT/0.01 ML SQ SCH (08:47)
[2022-07-15] MEDS: LACTULOSE 20 GM/30 ML ORAL.SOL PO PRN (08:50)
--- NOTE | 2022-07-15 11:24 | Infectious Disease Consult ---
HPI Date of Consult Consult Date: 07/15/22 Primary Care Provider: Margoth Azevedo Consult Narrative Patient Information: Note initiated : 07/15/22 at 11:23 am Service Date, if different from initiated Date: [] Patient: Yosef Chilel 61 y/o M admitted on 07/12/22 for fever,cough. Chief Complaint: [] cc:: CC: Rainer Rincon MD ID is consulted for gram-negative lane bacteremia Known case of ESRD on hemodialysis He has a right sided hemodialysis access placed in late March Prior to that he was on peritoneal dialysis for 1 year He came with fever chills rigors etc. The gram-negative rods are coming out to be ESBL E. coli First dose of meropenem was given White cell count is coming down Symptomatically feeling much better Mr. Chilel is a 61 year old Male with a history of insulin-dependent diabetes mellitus, hypertension, hyperlipidemia, ESRD on hemodialysis Tuesday, prior cerebellar stroke, sleep apnea, GERD Review of Systems All systems: reviewed and no additional remarkable complaints except as stated PFSH PFSH All Active Problems (Updated 07/15/22 @ 11:26 by Barry Garrido MD) Bacteremia (Acute) Encounter for long-term (current) use of medications (Chronic) Elbow pain, left (Chronic) Pain in right elbow (Chronic) Rib pain on right side (Chronic) Blurred vision (Chronic) Hypertension (Chronic) Tubulovillous adenoma of colon (Chronic) Anemia (Chronic) Abdominal pain, right upper quadrant (Chronic) Colonic polyp (Chronic) Hemorrhoids (Chronic) Benign skin lesion of multiple sites (Chronic) Hyperlipidemia (Chronic) Proteinuria (Chronic) Muscle contraction headache (Chronic) Cervical muscle strain (Chronic) Headache (Chronic) History of colonoscopy (Chronic ~11/06/19) Elevated alkaline phosphatase level (Chronic) Cardiomegaly (Chronic) Fatigue (Chronic) Other dysphagia (Chronic) Lower extremity edema (Chronic) Other obesity due to excess calories (Chronic) Cerebellar stroke (Chronic) Hypokalemia (Chronic) Dysphagia (Chronic) Sleep apnea (Chronic) Seasonal allergic rhinitis (Chronic) Elevated prostate specific antigen (PSA) (Chronic) GERD (gastroesophageal reflux disease) (Chronic) Diabetic neuropathy (Chronic) Diabetes mellitus, insulin dependent (IDDM), uncontrolled (Acute) Edema (Acute) Ascites (Acute) Liver disease (Acute) Other fluid overload (Chronic) Bilateral calf pain (Acute) Back pain (Acute) Abdominal pain (Acute) RUQ abdominal pain (Acute) Screening for malignant neoplasm of colon (Acute) Peritonitis associated with peritoneal dialysis (Acute) Peritoneal dialysis catheter dysfunction (Chronic) ESRD on hemodialysis (Chronic) ESRD (end stage renal disease) (Acute) Bronchitis (Acute) Dialysis patient (Acute) Sepsis (Acute) Acute UTI (Acute) Secondary hyperparathyroidism of renal origin (Acute) Volume overload (Chronic) Gram negative sepsis (Acute) Medical History (Updated 07/15/22 @ 11:26 by Barry Garrido MD) Abdominal pain Abdominal pain, right upper quadrant Anemia Benign skin lesion of multiple sites Blurred vision Cardiomegaly Cerebellar stroke Cervical muscle strain Colonic polyp Diabetic neuropathy Dysphagia Elbow pain, left Elevated alkaline phosphatase level Elevated prostate specific antigen (PSA) Encounter for long-term (current) use of medications Fatigue GERD (gastroesophageal reflux disease) Headache Hemorrhoids Hyperlipidemia Hypertension Hypokalemia Lower extremity edema Muscle contraction headache Other dysphagia Other obesity due to excess calories Pain in right elbow Proteinuria Rib pain on right side RUQ abdominal pain Screening for malignant neoplasm of colon Seasonal allergic rhinitis Sleep apnea Tubulovillous adenoma of colon Surgical History (Updated 06/10/22 @ 07:54 by Naida Del Rio CMA) History of abdominal surgery (12/2020) peritoneal dialysis catheter History of appendectomy History of colonoscopy (~11/06/19) 04/06/17 Dr. Lomeli - Colon polyp x 4, Hemorrhoids. History of surgery 05/26/2022-removal of peritoneal dialysis catheter Family History Father , Age 65 High blood pressure Heart attack Mother High blood pressure Social History marital status: occupational status: employed physical activity: none smoking status: Never smoker alcohol intake frequency: does not drink substance use type: does not use MEDS/ALLERGIES Home Medications and Allergies Home Medications Medication Instructions Recorded Confirmed Type aspirin 325 mg tablet 325 mg PO QDAY 10/20/21 07/12/22 History lancets 30 gauge (BD Ultra-Fine II 10/20/21 07/12/22 History Lancets) tramadol 50 mg tablet 25 mg PO BID PRN pain #30 tabs 03/01/22 07/12/22 Rx carvedilol 25 mg tablet (Coreg) 25 mg PO BID #180 tabs 03/16/22 07/12/22 Rx glipizide 10 mg tablet 10 mg PO BID #180 tabs 03/16/22 07/12/22 Rx insulin lispro 100 unit/mL 15 unit (0.15 mL) subcut TID #15 mL 03/16/22 07/12/22 Rx subcutaneous pen (Humalog KwikPen (U-100) Insulin) torsemide 100 mg tablet 100 mg PO BID #180 tabs 03/16/22 07/12/22 Rx Lantus Solostar U-100 Insulin 100 37 unit (0.37 mL) subcut QAM #15 mL 03/24/22 07/12/22 Rx unit/mL (3 mL) subcutaneous pen (insulin glargine) atorvastatin 80 mg tablet 80 mg PO QPM 05/24/22 07/12/22 History gabapentin 100 mg capsule 100 mg PO QPM 05/24/22 07/12/22 History omeprazole 20 mg capsule,delayed 20 mg PO QAM 05/24/22 07/12/22 History release pen needle, diabetic 32 gauge x 05/24/22 07/12/22 History 5/32" verapamil 180 mg tablet,extended 180 mg PO QDAY PRN Increased Blood 05/24/22 07/12/22 History release Pressure oxycodone-acetaminophen 10 mg-325 1 tab PO Q4H PRN Pain #30 tabs 05/26/22 07/12/22 Rx mg tablet (Endocet) blood sugar diagnostic (True #100 ea 06/07/22 07/12/22 Rx Metrix Glucose Test Strip) Allergies Allergy/AdvReac Type Severity Reaction Status Date / Time No Known Drug Allergies Allergy Verified 07/12/22 19:23 Physical Examination Vital Signs Vital signs: Temp Pulse Resp BP Pulse Ox O2 Del Method O2 Flow Rate 98.2 F 83 23 H 130/74 95 Room Air 2 07/15/22 08:01 07/15/22 08:01 07/15/22 08:01 07/15/22 08:01 07/15/22 08:01 07/15/22 08:01 07/15/22 06:01 Additional Exam Additional exam: Patient is afebrile and hemodynamically stable Is on room air HEENT: Atraumatic and normocephalic Respiratory: Good air entry on both sides Cardiovascular: S1-S2 GI: Abdomen is soft Musculoskeletal normal Results Laboratory Findings 07/15/22 05:29 07/14/22 15:40 Abnormal lab findings: Abnormal Labs 07/12/22 07/12/22 07/12/22 12:30 12:30 12:30 WBC 25.2 H RBC 3.31 L Hgb 9.6 L Hct 29.4 L POC Hct RDW Plt Count 137 L Immature Gran % (Auto) 1.2 H Neut % (Auto) 82.5 H Lymph % (Auto) 8.5 L Hooker % (Auto) Hooker # (Auto) 1.84 H Immature Gran # 0.30 H Absolute Neutrophils 20.80 H POC VBG pCO2 at Temp POC VBG pO2 POC VBG HCO3 POC VBG Total CO2 POC Venous O2 Sat POC VBG Base Excess POC Sodium Sodium POC Potassium Potassium 5.9 H* Chloride Carbon Dioxide Anion Gap POC BUN BUN Creatinine POC Creatinine Glucose POC Glucose Uric Acid POC WB Ioniz Calcium Phosphorus Alkaline Phosphatase Lactate Dehydrogenase NT-Pro-B Natriuret Pep Globulin Albumin/Globulin Ratio Triglycerides Procalcitonin 2.62 H PTH Intact Urine Appearance Urine Protein Urine Glucose (UA) Ur Leukocyte Esterase Urine RBC Urine WBC 07/12/22 07/12/22 07/12/22 12:30 12:34 12:42 WBC RBC Hgb Hct POC Hct 29.0 L RDW Plt Count Immature Gran % (Auto) Neut % (Auto) Lymph % (Auto) Hooker % (Auto) Hooker # (Auto) Immature Gran # Absolute Neutrophils POC VBG pCO2 at Temp 35.3 L POC VBG pO2 57 H POC VBG HCO3 22.1 L POC VBG Total CO2 23.0 L POC Venous O2 Sat 89.0 H POC VBG Base Excess -3.0 L POC Sodium 130 L Sodium 129 L POC Potassium 5.8 H Potassium 5.9 H* Chloride 91 L Carbon Dioxide 21 L Anion Gap 17.0 H POC BUN 88 H BUN 83 H Creatinine 7.9 H* POC Creatinine 10.9 H* Glucose 140 H POC Glucose 190 H Uric Acid POC WB Ioniz Calcium 1.04 L Phosphorus Alkaline Phosphatase Lactate Dehydrogenase 305 H NT-Pro-B Natriuret Pep Globulin Albumin/Globulin Ratio Triglycerides 224 H Procalcitonin PTH Intact Urine Appearance Urine Protein Urine Glucose (UA) Ur Leukocyte Esterase Urine RBC Urine WBC 07/12/22 07/12/22 07/13/22 12:55 21:43 01:30 WBC RBC Hgb Hct POC Hct RDW Plt Count Immature Gran % (Auto) Neut % (Auto) Lymph % (Auto) Hooker % (Auto) Hooker # (Auto) Immature Gran # Absolute Neutrophils POC VBG pCO2 at Temp POC VBG pO2 POC VBG HCO3 POC VBG Total CO2 POC Venous O2 Sat POC VBG Base Excess POC Sodium Sodium 131 L 132 L POC Potassium Potassium 6.1 H* Chloride 92 L 93 L Carbon Dioxide 20 L 21 L Anion Gap 19.0 H 18.0 H POC BUN BUN 82 H 86 H Creatinine 8.6 H* 8.7 H* POC Creatinine Glucose 176 H 163 H POC Glucose Uric Acid POC WB Ioniz Calcium Phosphorus Alkaline Phosphatase Lactate Dehydrogenase NT-Pro-B Natriuret Pep Globulin Albumin/Globulin Ratio Triglycerides Procalcitonin PTH Intact Urine Appearance Turbid A Urine Protein >=500 A Urine Glucose (UA) 50 A Ur Leukocyte Esterase 500 A Urine RBC 8 H Urine WBC > 182 H 07/13/22 07/13/22 07/13/22 05:35 05:35 05:36 WBC 21.7 H RBC 3.42 L Hgb 9.9 L Hct 30.9 L POC Hct RDW 14.6 H Plt Count Immature Gran % (Auto) 0.6 H Neut % (Auto) 81.8 H Lymph % (Auto) 9.0 L Hooker % (Auto) Hooker # (Auto) 1.63 H Immature Gran # 0.14 H Absolute Neutrophils 17.72 H POC VBG pCO2 at Temp POC VBG pO2 POC VBG HCO3 POC VBG Total CO2 POC Venous O2 Sat POC VBG Base Excess POC Sodium Sodium POC Potassium Potassium Chloride 94 L Carbon Dioxide 20 L Anion Gap 19.0 H POC BUN BUN 84 H Creatinine 8.6 H* POC Creatinine Glucose 106 H POC Glucose Uric Acid 8.2 H POC WB Ioniz Calcium Phosphorus 5.1 H Alkaline Phosphatase 118 H Lactate Dehydrogenase 274 H NT-Pro-B Natriuret Pep Globulin Albumin/Globulin Ratio Triglycerides 244 H Procalcitonin PTH Intact 279.8 H Urine Appearance Urine Protein Urine Glucose (UA) Ur Leukocyte Esterase Urine RBC Urine WBC 07/13/22 07/14/22 07/14/22 11:50 05:30 05:30 WBC 18.6 H RBC 3.58 L Hgb 10.4 L Hct 32.9 L POC Hct RDW 14.6 H Plt Count Immature Gran % (Auto) 0.8 H Neut % (Auto) Lymph % (Auto) 10.0 L Hooker % (Auto) Hooker # (Auto) 1.88 H Immature Gran # 0.14 H Absolute Neutrophils 14.51 H POC VBG pCO2 at Temp POC VBG pO2 POC VBG HCO3 POC VBG Total CO2 POC Venous O2 Sat POC VBG Base Excess POC Sodium Sodium 131 L POC Potassium Potassium Chloride 88 L Carbon Dioxide Anion Gap 20.0 H POC BUN BUN 43 H Creatinine 6.4 H* POC Creatinine Glucose 123 H POC Glucose Uric Acid POC WB Ioniz Calcium Phosphorus 5.6 H Alkaline Phosphatase 129 H Lactate Dehydrogenase 286 H NT-Pro-B Natriuret Pep 7668.0 H Globulin 4.4 H Albumin/Globulin Ratio 0.9 L Triglycerides 339 H Procalcitonin PTH Intact Urine Appearance Urine Protein Urine Glucose (UA) Ur Leukocyte Esterase Urine RBC Urine WBC 07/14/22 07/14/22 07/15/22 05:31 12:10 05:29 WBC 11.8 H RBC 3.60 L Hgb 10.5 L Hct 33.7 L POC Hct RDW Plt Count Immature Gran % (Auto) 1.4 H Neut % (Auto) Lymph % (Auto) Hooker % (Auto) 17.3 H Hooker # (Auto) 2.04 H Immature Gran # 0.16 H Absolute Neutrophils POC VBG pCO2 at Temp POC VBG pO2 POC VBG HCO3 POC VBG Total CO2 POC Venous O2 Sat POC VBG Base Excess POC Sodium Sodium POC Potassium Potassium Chloride Carbon Dioxide Anion Gap POC BUN BUN 48 H Creatinine POC Creatinine Glucose POC Glucose Uric Acid POC WB Ioniz Calcium Phosphorus Alkaline Phosphatase Lactate Dehydrogenase NT-Pro-B Natriuret Pep Globulin Albumin/Globulin Ratio Triglycerides Procalcitonin 10.33 H PTH Intact Urine Appearance Urine Protein Urine Glucose (UA) Ur Leukocyte Esterase Urine RBC Urine WBC Microbiology: Microbiology 07/13/22 08:43 Blood - [facility] Blood Culture - Preliminary Escherichia coli 07/13/22 08:50 Blood - [facility] Blood Culture - Preliminary Escherichia coli 07/12/22 12:36 Blood Blood Culture - Preliminary 07/12/22 12:30 Blood Blood Culture - Preliminary 07/12/22 12:55 Urine - Clean Void Mid-Stream Urine Culture - Preliminary Gram negative bacillus A/P Assessment and plan (1) Bacteremia: Assessment and plan: 61-year-old male patient is a known case of ESRD on hemodialysis He is on hemodialysis since - March 2022 Prior to that he was on PD for 1 year Came with fevers chills rigors etc. Gram-negative lane bacteremia UTI symptoms He was giving history of cough but chest x-ray is clean He is on room air when I examined him Repeat cultures were drawn today Meropenem was started yesterday hemodynamically stable White cell count is coming down Plan: We will leave him on IV meropenem The other option will be IV ertapenem Identification of the organism is still pending but lab is positive with ESBL E. coli That too , the Patient is responding clinically Repeat set of blood cultures were drawn today If the repeat cultures come back positive, the line should be removed If the repeat cultures come back negative then there is no reason to remove the line Duration of treatment is 2 to 3 weeks, either meropenem or ertapenem can be dosed with dialysis Patient has chronic low back pain and there is neither worsening or betterment with this pain Status: Acute Narrative Plan of Treatment: 1. HD with increased fluid removal 2. Follow up cultures 3. Utine and blood cultures (+) GNR 4. Inflammatory biomarkers 5. MAGAN, Phosphate binders and Vit D analogues 6. Gent 165 mg x 1 dose 7. Merropenin given by Hospital medicine 8. This seems like urosepsis so leave catheter in place Time Spent With Patient Time: Total time spent is greater than 50% in coordination of care (as documented) at patient's floor/unit and/or counseling patient:
--- NOTE | 2022-07-15 13:12 | Internal Med Progress Note ---
SUBJECTIVE Subjective Patient information: Note initiated : 07/15/22 at 1:08 pm Service Date, if different from initiated Date: [] Patient: Yosef Chilel 61 y/o M admitted on 07/12/22 for fever,cough. Chief Complaint: [] Principal diagnosis: ESRD Interval history: Mr. Chilel is a 61 year old Male with a history of insulin-dependent diabetes mellitus, hypertension, hyperlipidemia, ESRD on hemodialysis Tuesday, prior cerebellar stroke, sleep apnea, GERD who developed fevers and rigors 2 days prior to admission. The patient also says that he had a cough productive of yellowish sputum that started 3 days ago and also had burning on urination that started about 2 days ago. The patient also had intermittent chest discomforts and shortness of breath. The patient presented to the emergency department and was found to have a fever as well as a leukocytosis concerning for sepsis. Patient did have a urinalysis which was moderately suggestive of a UTI. Chest x-ray did not show any infiltrates, there was mild cardiomegaly. A CT abdomen and pelvis with contrast did not show any acute intra-abdominal or intrapelvic diseases or infectious processes. The patient's hemodialysis was malpositioned with the tip extending through the tricuspid valve into the right ventricle. Additionally, the patient was found to have hyperkalemia in the ED with a potassium level of 5.9. EKG did not show any changes secondary to hyperkalemia and also did not show any dynamic ischemic changes. Troponin level was normal. The patient was given vancomycin IV and ceftriaxone in the ED as well as calcium gluconate IV. Hospital medicine was asked to admit the patient for sepsis. Nephrology was notified regarding admission and felt the patient could be admitted to the [facility]. Unfortunately hemodialysis will not be available on the day of admission due to staffing. 07/13 The patient continues to have fevers, urine culture growing gram-negative bacilli. Started cefepime and discontinued ceftriaxone. Continue vancomycin IV dosed by pharmacy for now pending blood culture results. If blood cultures did not grow any organisms will discontinue vancomycin. Patient received hemodialysis today. Potassium level has normalized. 07/14 Patient had a high-grade temperatures overnight. Microbiology notified that gram-negative bacilli is E. coli very suspicious for ESBL. Meropenem started, discontinue the cefepime. 07/15 The patient did have a high-grade temperature overnight but no fevers. Leukocytosis improving. Blood cultures now resulting as E. coli, antibiotic sensitivities pending. Infectious disease consulted. Continues on meropenem. The patient feels like he is ready to go home. Discussed that we need to wait to decide on antibiotic coverage and also whether or not the patient can keep the hemodialysis catheter. Repeat blood cultures from the hemodialysis obtained today. Transfer to [facility] status. Physical exam Head: Atraumatic, normal inspection. Eyes: normal appearance, no scleral icterus. Neck: full ROM Respiratory: no respiratory distress. Cardiovascular: normal rate and rhythm, S1, S2, right upper chest tunneled HD catheter GI/Abdominal: Obesely distended, soft, nontender, no guarding. Extremities: full range of motion, nontender. Neurological: CN II-XII intact, intact motor, intact sensation. Psychiatric: normal mood. Skin: warm, normal color Constitutional Vitals: Vital Signs Temp Pulse Resp BP Pulse Ox O2 Del Method O2 Flow Rate 98.2 F 83 23 H 130/74 95 Room Air 2 07/15/22 08:01 07/15/22 08:01 07/15/22 08:01 07/15/22 08:01 07/15/22 08:01 07/15/22 08:01 07/15/22 06:01 Period Temp Pulse Resp BP Sys/Matute Pulse Ox O2 Del Method O2 Flow Rate Last 24 Hr 96.7 F-100.2 F 83-103 - 79-142/29-104 80-100 Nasal Cannula-Room Air 2-2 Intake and Output 07/15/22 07/15/22 07/15/22 03:59 11:59 19:59 Intake Total 698 390 Balance 698 390 Weight 111.72 kg Intake & Output: Intake & Output 07/15/22 07/15/22 07/15/22 03:59 11:59 19:59 Intake Total 698 390 Balance 698 390 Weight 111.72 kg Intake: Oral 218 390 GI Tube Flush 480 Other: Meal Nourishment/Supplement Breakfast Percent of Meal Consumed 100% 100% Feeding Ability Independent Independent Nourishment/Supplement name Tomato soup OBJ DATA Labs 07/15/22 05:29 07/14/22 15:40 Labs: Abnormal Lab Results 07/15/22 07/14/2223 05:29 12:10 05:31 WBC 11.8 H RBC 3.60 L Hgb 10.5 L Hct 33.7 L RDW Plt Count Immature Gran % (Auto) 1.4 H Neut % (Auto) Lymph % (Auto) [place] % (Auto) 17.3 H [place] # (Auto) 2.04 H Immature Gran # 0.16 H Absolute Neutrophils Sodium Potassium Chloride Carbon Dioxide Anion Gap BUN 48 H Creatinine Glucose Uric Acid Phosphorus Alkaline Phosphatase Lactate Dehydrogenase NT-Pro-B Natriuret Pep Globulin Albumin/Globulin Ratio Triglycerides Procalcitonin 10.33 H PTH Intact Urine Appearance Urine Protein Urine Glucose (UA) Ur Leukocyte Esterase Urine RBC Urine WBC 07/14/22 07/14/22 07/13/22 05:30 05:30 11:50 WBC 18.6 H RBC 3.58 L Hgb 10.4 L Hct 32.9 L RDW 14.6 H Plt Count Immature Gran % (Auto) 0.8 H Neut % (Auto) Lymph % (Auto) 10.0 L [place] % (Auto) [place] # (Auto) 1.88 H Immature Gran # 0.14 H Absolute Neutrophils 14.51 H Sodium 131 L Potassium Chloride 88 L Carbon Dioxide Anion Gap 20.0 H BUN 43 H Creatinine 6.4 H* Glucose 123 H Uric Acid Phosphorus 5.6 H Alkaline Phosphatase 129 H Lactate Dehydrogenase 286 H NT-Pro-B Natriuret Pep 7668.0 H Globulin 4.4 H Albumin/Globulin Ratio 0.9 L Triglycerides 339 H Procalcitonin PTH Intact Urine Appearance Urine Protein Urine Glucose (UA) Ur Leukocyte Esterase Urine RBC Urine WBC 07/13/22 07/13/22 07/13/22 05:36 05:35 05:35 WBC 21.7 H RBC 3.42 L Hgb 9.9 L Hct 30.9 L RDW 14.6 H Plt Count Immature Gran % (Auto) 0.6 H Neut % (Auto) 81.8 H Lymph % (Auto) 9.0 L [place] % (Auto) [place] # (Auto) 1.63 H Immature Gran # 0.14 H Absolute Neutrophils 17.72 H Sodium Potassium Chloride 94 L Carbon Dioxide 20 L Anion Gap 19.0 H BUN 84 H Creatinine 8.6 H* Glucose 106 H Uric Acid 8.2 H Phosphorus 5.1 H Alkaline Phosphatase 118 H Lactate Dehydrogenase 274 H NT-Pro-B Natriuret Pep Globulin Albumin/Globulin Ratio Triglycerides 244 H Procalcitonin PTH Intact 279.8 H Urine Appearance Urine Protein Urine Glucose (UA) Ur Leukocyte Esterase Urine RBC Urine WBC 07/13/22 07/12/22 07/12/22 01:30 21:43 12:55 WBC RBC Hgb Hct RDW Plt Count Immature Gran % (Auto) Neut % (Auto) Lymph % (Auto) [place] % (Auto) [place] # (Auto) Immature Gran # Absolute Neutrophils Sodium 132 L 131 L Potassium 6.1 H* Chloride 93 L 92 L Carbon Dioxide 21 L 20 L Anion Gap 18.0 H 19.0 H BUN 86 H 82 H Creatinine 8.7 H* 8.6 H* Glucose 163 H 176 H Uric Acid Phosphorus Alkaline Phosphatase Lactate Dehydrogenase NT-Pro-B Natriuret Pep Globulin Albumin/Globulin Ratio Triglycerides Procalcitonin PTH Intact Urine Appearance Turbid A Urine Protein >=500 A Urine Glucose (UA) 50 A Ur Leukocyte Esterase 500 A Urine RBC 8 H Urine WBC > 182 H 07/12/22 07/12/22 07/12/22 12:30 12:30 12:30 WBC RBC Hgb Hct RDW Plt Count Immature Gran % (Auto) Neut % (Auto) Lymph % (Auto) [place] % (Auto) [place] # (Auto) Immature Gran # Absolute Neutrophils Sodium 129 L Potassium 5.9 H* 5.9 H* Chloride 91 L Carbon Dioxide 21 L Anion Gap 17.0 H BUN 83 H Creatinine 7.9 H* Glucose 140 H Uric Acid Phosphorus Alkaline Phosphatase Lactate Dehydrogenase 305 H NT-Pro-B Natriuret Pep Globulin Albumin/Globulin Ratio Triglycerides 224 H Procalcitonin 2.62 H PTH Intact Urine Appearance Urine Protein Urine Glucose (UA) Ur Leukocyte Esterase Urine RBC Urine WBC 07/12/22 12:30 WBC 25.2 H RBC 3.31 L Hgb 9.6 L Hct 29.4 L RDW Plt Count 137 L Immature Gran % (Auto) 1.2 H Neut % (Auto) 82.5 H Lymph % (Auto) 8.5 L [place] % (Auto) [place] # (Auto) 1.84 H Immature Gran # 0.30 H Absolute Neutrophils 20.80 H Sodium Potassium Chloride Carbon Dioxide Anion Gap BUN Creatinine Glucose Uric Acid Phosphorus Alkaline Phosphatase Lactate Dehydrogenase NT-Pro-B Natriuret Pep Globulin Albumin/Globulin Ratio Triglycerides Procalcitonin PTH Intact Urine Appearance Urine Protein Urine Glucose (UA) Ur Leukocyte Esterase Urine RBC Urine WBC Meds: Medications Acetaminophen (Acetaminophen 325 Mg Tablet) 650 mg PO Q6HP PRN; Protocol PRN Reason: Per Pain Protocol/Fever > 101 Last Admin: 07/14/22 19:30 Dose: 650 mg Hydrocodone Bitart/Acetaminophen (Hydrocodone/Apap 5/325mg Tablet) 1 tab PO Q4HP PRN; Protocol PRN Reason: Per Pain Protocol Last Admin: 07/15/22 00:30 Dose: 1 tab Aspirin (Aspirin 325 Mg Enteric Coated Tablet) 325 mg PO DAILY [facility] Last Admin: 07/15/22 08:46 Dose: 325 mg Atorvastatin Calcium (Atorvastatin 40 Mg Tablet) 80 mg PO HS [facility] Last Admin: 07/14/22 20:20 Dose: 80 mg Carvedilol (Carvedilol 12.5 Mg Tablet) 25 mg PO BIDCC [facility] Last Admin: 07/15/22 08:17 Dose: 25 mg Dextrose (Dextrose 50% 50 Ml Vial) 0 ml IV UD PRN PRN Reason: Per Sliding Scale Diagnostic Test (Pha) (Accu-Chek 1 Each Strip) 1 each FS ACHS [facility] Last Admin: 07/15/22 11:40 Dose: 1 each Diazepam (Diazepam 5 Mg Tablet) 5 mg PO TIDP PRN PRN Reason: Anxiety Last Admin: 07/13/22 20:06 Dose: 5 mg Docusate Sodium (Docusate Sodium 100 Mg Capsule) 100 mg PO BID [facility] Last Admin: 07/15/22 08:46 Dose: 100 mg Gabapentin (Gabapentin 100 Mg Capsule) 100 mg PO QPM [facility] Last Admin: 07/14/22 20:20 Dose: 100 mg Glucose (Dextrose 31 Gm Oral.Susp) 15 gm PO PRN PRN PRN Reason: Hypoglycemia Heparin Sodium (Porcine) (Heparin 5,000 Unit/Ml Vial) 5,000 unit SQ Q12 [facility] Last Admin: 07/15/22 08:46 Dose: 5,000 unit Albumin Human (Buminate) 12.5 gm in 50 mls @ 100 mls/hr IV ONCE PRN PRN Reason: Hypotension Last Infusion: 07/14/22 14:50 Dose: Infused Albumin Human (Buminate) 12.5 gm in 50 mls @ 100 mls/hr IV PRN PRN PRN Reason: Hypotension Meropenem 1 gm/ Sodium (Chloride) 50 mls @ 100 mls/hr IV Q24H [facility] Last Infusion: 07/14/22 16:35 Dose: Infused Insulin Glargine (Insulin Glargine, Human 1 Unit/0.01 Ml) 20 unit SQ DAILY [facility] Last Admin: 07/15/22 08:47 Dose: 20 unit Insulin Human Lispro (Insulin Lispro 1 Unit/0.01 Ml Unit) 0 unit SQ ACHS [facility]; Protocol Last Admin: 07/15/22 11:41 Dose: 8 unit Lactulose (Lactulose 20 Gm/30 Ml Oral.Erika) 10 gm PO DAILYP PRN PRN Reason: Constipation Last Admin: 07/15/22 08:50 Dose: 10 gm Omeprazole (Omeprazole 20 Mg Capsule) 20 mg PO QAM [facility] Last Admin: 07/15/22 08:47 Dose: 20 mg Ondansetron HCl (Ondansetron 4 Mg/2 Ml Vial) 4 mg IV Q4HP PRN; Protocol PRN Reason: Nausea And Vomiting Oxycodone/Acetaminophen (Oxycodone/Apap 10/325mg Tablet) 1 tab PO Q4HP PRN; Protocol PRN Reason: Pain Last Admin: 07/14/22 23:06 Dose: 1 tab Senna (Sennosides 1 Tablet) 2 tab PO HSP PRN PRN Reason: Constipation Last Admin: 07/14/22 23:45 Dose: 2 tab Sodium Chloride (0.9 % Sodium Chloride 10 Ml Syringe) 10 ml IV Q8 [facility] Last Admin: 07/15/22 05:15 Dose: 10 ml A/P Narrative A/P Narrative: Assessment: 61-year-old male with a history of insulin-dependent diabetes mellitus, hypertension, hyperlipidemia, ESRD on hemodialysis via tunneled hemodialysis catheter, prior cerebellar stroke, sleep apnea, GERD admitted for sepsis secondary to UTI and complicated by gram-negative bacteremia. #Resolved sepsis secondary to UTI/pyelonephritis complicated by E. coli naldo low #Probable ESBL UTI and bacteremia #Insulin-dependent diabetes mellitus #Chronic anemia due to ESRD #Hypertension #Hyperlipidemia #History of cerebellar stroke #Obstructive sleep apnea #GERD #Malpositioned tunneled HD catheter in right ventricle Plan -Continue renally dosed meropenem.. -Follow urine and all blood cultures. -Lantus 20 units at bedtime and correction Humalog SSI medium dose for now. -Repeat HD catheter blood cultures today. -Continue home aspirin, Lipitor, Coreg, omeprazole, Percocet. -Nephrology following. -Tele-infectious disease consulted. -Renal and diabetic diet. -PT consult. -DVT prophylaxis: Heparin SQ -Disposition: Inpatient MedSurg status. Awaiting infectious disease recommendations regarding length of treatment and to determine if the HD catheter needs to be removed and replaced. After discharge recommend referral back to the provider that placed the HD catheter to consider pulling back the catheter out of the right ventricle. Plan of Treatment: 1. HD with increased fluid removal 2. Follow up cultures 3. Utine and blood cultures (+) GNR 4. Inflammatory biomarkers 5. MAGAN, Phosphate binders and Vit D analogues 6. Gent 165 mg x 1 dose 7. Merropenin given by Hospital medicine 8. This seems like urosepsis so leave catheter in place Time Spent With Patient Time: Total time spent is greater than 50% in coordination of care (as documented) at patient's floor/unit and/or counseling patient: QUALITY VTE Deep Vein Thrombosis/Pulmonary Embolism Present on Admission: No
[2022-07-15] MEDS: oxyCODONE/APAP 10/325MG TABLET PO PRN (14:47)
[2022-07-15] MEDS: MEROPENEM 1 GM in 0.9 % SODIUM CHLORIDE 50 ML IV SCH (15:50)
[2022-07-15] MEDS: ATORVASTATIN 40 MG TABLET PO SCH (20:26)
[2022-07-15] MEDS: GABAPENTIN 100 MG CAPSULE PO SCH (20:26)
[2022-07-15] MEDS: ACETAMINOPHEN 325 MG TABLET PO PRN (21:55)
[2022-07-16] MEDS: oxyCODONE/APAP 10/325MG TABLET PO PRN (02:25)
[2022-07-16] MEDS: 0.9 % SODIUM CHLORIDE 10 ML SYRINGE IV SCH ×3 (05:25→22:22)
[2022-07-16 07:14] LABS: ALT/SGPT 41 U/L (<40); AST/SGOT 33 U/L (<40); Albumin 3.9 gm/dL (3.2-5.2); Albumin/Globulin Ratio 0.9 (1.0-2.3); Alkaline Phosphatase 120 U/L (39-117); Bilirubin,Direct < 0.2 mg/dL (0-0.3); Bilirubin,Total 0.2 mg/dL (0.1-1.0); Blood Urea Nitrogen 50 mg/dL (8-23); Calcium 9.3 mg/dL (8.6-10.4); Carbon Dioxide 24 mmol/L (22-30); Chloride 86 mmol/L (96-108); Globulin 4.2 gm/dL (2.2-3.7); Glomerular Filtration Rate 7; Glucose 177 mg/dL (70-105); Lactate Dehydrogenase 311 U/L (135-225); Phosphorous 7.1 mg/dL (2.5-4.5); Triglycerides 394 mg/dL (<150); Uric Acid 6.5 mg/dL (2.5-8.0)
[2022-07-16 07:38] LABS: Basophils # (Auto) 0.09 K/mcL (0.00-0.30); Basophils % (Auto) 0.8 % (0.0-2.0); Eosinophils % (Auto) 5.6 % (0.0-7.0); Hematocrit 33.4 % (40.1-51.0); Hemoglobin 10.4 g/dL (13.7-17.5); Lymphocytes # (Auto) 2.27 K/mcL (1.50-4.80); Lymphocytes % (Auto) 21.4 % (15.5-49.0); Mean Cell Volume 92.3 fL (80.0-100.0); Mean Corpuscular HGB Conc 31.1 g/dL (31.0-36.0); Mean Platelet Volume 11.3 fL (8.8-12.5); Monocytes # (Auto) 1.86 K/mcL (0.10-0.90); Monocytes % (Auto) 17.5 % (1.0-12.0); Neutrophils % (Auto) 50.9 % (38.0-78.0); Platelet Count 221 K/mcL (140-440); RBC 3.62 M/mcL (4.63-6.08); Red Cell Distribution Width 14.2 % (11.5-14.5); WBC 10.6 K/mcL (4.5-11.0)
--- NOTE | 2022-07-16 07:52 | Nephrology Progress Note ---
SUBJECTIVE Subjective Patient information: Note initiated : 07/16/22 at 7:48 am Service Date, if different from initiated Date: [] Patient: Yosef Chilel 61 y/o M admitted on 07/12/22 for fever,cough. Chief Complaint: [weakness] Principal diagnosis: ESRD Interval history: E coli bacteremia found on Day 2 (blood cultures in ER negative) Switched to post HD Gent x 1 and meropenem Under dialyzed with 3 hr Tx and catheter as URR after 3.5 hr just above minumum at 68% New Dry weight ~112 kg This patient does not get the big picture of HD and complains that he needs just 3 hours of Tx 3x a week which is absurd in the extreme for a 115 kg pt with a flow limiting access (temporary cuffed HD catheter with tip in the right ventricle), No plans for AVF as he's going to get a kidney from [facility] but his center is slow to perform RTx, his family adds to the manipulation but they are not doing him any favors, he needs 4 hour tx 3 times a week, AVF placement once infection resolves, evaluation for BPH and urinary retention, stop narcotics due to BPH and decreased bladder emptying with these Rx, HisPCP should aid with LBP and arranging Urology evaluation. Due to lack of HD staff, the next dialysis day as an inpatient is July 20, 2022 (Tuesday) He will need a PICC line (preferably IJ on cotralateral side as his HD catheter and tunneled would be the best) Vein mapping and AVF creation therafter as I see no RTx on the horizone and his current HD catheter crossesthe tricuspic valve with its tip in the RV but not ca using any ectopy). Temp Weight CT ABD/Pelvis 07/12/2022 Prior MRI showing left brainstem infarct in September 2020 ID Assessment and Plan:Assessment and plan (1) Bacteremia: Assessment and plan: 61-year-old male patient is a known case of ESRD on hemodialysis He is on hemodialysis since - March 2022 Prior to that he was on PD for 1 year Came with fevers chills rigors etc. Gram-negative lane bacteremia UTI symptoms He was giving history of cough but chest x-ray is clean He is on room air when I examined him Repeat cultures were drawn today Meropenem was started yesterday hemodynamically stable White cell count is coming down Plan: We will leave him on IV meropenem The other option will be IV ertapenem Identification of the organism is still pending but lab is positive with ESBL E. coli That too , the Patient is responding clinically Repeat set of blood cultures were drawn today If the repeat cultures come back positive, the line should be removed If the repeat cultures come back negative then there is no reason to remove the line Duration of treatment is 2 to 3 weeks, either meropenem or ertapenem can be dosed with dialysis Patient has chronic low back pain and there is neither worsening or betterment with this pain Pertinent ROS: HD and ABx today Will need PICC line to complete ID recommendations I'd shoot for Tuesday D/C to [facility] for LEFT IJ PICC line, then HD at [facility] OUT Patient HD Unit, Then infusion of ABx as suggested by ID in [facility] for 2-3 weeks if blood cultures remain negative from HD catheter from 07/14/2022 and 07/16/2022 Additional PMFSH (Level 3 Only): Prior brain stem stroke may be the cause of his excessive salivation. Constitutional Vitals: Vital Signs Temp Pulse Resp BP Pulse Ox O2 Del Method O2 Flow Rate 36.8 C 82 11 L 118/75 90 Room Air 2 07/16/22 04:00 07/16/22 04:00 07/16/22 04:00 07/16/22 04:00 07/16/22 04:00 07/16/22 04:00 07/15/22 06:01 Period Temp Pulse Resp BP Sys/Matute Pulse Ox O2 Del Method O2 Flow Rate Last 24 Hr 36.4 C-37.1 C 73-88 - 106-153/66-83 90-98 Room Air-Room Air Intake and Output 07/15/22 07/16/22 07/16/22 19:59 03:59 11:59 Intake Total 410 235 Balance 410 235 Weight 112.309 kg Intake & Output: Intake & Output 07/15/22 07/16/22 07/16/22 19:59 03:59 11:59 Intake Total 410 235 Balance 410 235 Weight 112.309 kg Intake: IV 50 Merrem 1 gm In Sodium Chloride 50 0.9% 50 ml @ 100 mls/hr IV Q24H COUNT INCLUDES THE [facility] Rx#:[id number] Oral 360 235 Other: Meal Dinner Percent of Meal Consumed 100% Feeding Ability Independent Urine Color Medium Red Urine Odor Normal Stool Size Large Moderate Stool Color Brown Brown Stool Consistency Soft Soft Liquid Loose # Bowel Movements 1 1 General appearance: mild distress and obese Exam: Complaining of pain in the back Head Head exam: Present normal inspection Eye Eye exam: Present EOMI and PERRL; Absent scleral icterus ENT ENT exam: Present mucous membranes dry Neck Neck exam: Absent meningismus Respiratory Respiratory exam: Present CTAB Cardiovascular Cardiovascular exam: Present normal rate and rhythm, +S1 and +S2; Absent systolic murmur GI/Abdominal GI/Abdominal exam: Present diminished bowel sounds and tenderness Extremities Exam Extremities exam: Absent pedal edema Back Exam Back exam: Present CVA tenderness (L) and CVA tenderness (R) Neurological Exam Neurological exam: Present alert, CN II-XII intact and oriented X3 Psychiatric Psychiatric exam: Present anxious Skin Skin exam: Present dry and intact A/P Assessment and plan (1) Gram negative sepsis: Assessment and plan: Urosepsis Status: Acute Comment: Improving with Gent and Meropenem (2) Dialysis patient: Status: Chronic Comment: Next Treatment Tuesday as outpatient or Tuesday as inpatient. (3) E coli bacteremia: Status: Acute Comment: ID says 2-3 weeks of IV ABx (Meropenem) Needs PICC line before or at the time of discharge For what it's worth, a tunneled IJ picc line opposite the current IJ HD catheter is optimal and in most of the [place] the standard of care to preserve arm veins for future AVF/AVG. Needs to be arranged along with outpatient ([facility]) or home ([facility]), with insurance approval, on MWF post HD. Plan Based on all the above, most likely discharge date is 07/21/2022. Narrative Plan of Treatment: 1. HD with increased fluid removal 2. Follow up sensitivities to meropemen from peripheral site and HD catheter repeat culture 3. Urine and blood cultures (+) E coli 4. Inflammatory biomarkers 5. MAGAN, Phosphate binders and Vit D analogues 6. Gent 165 mg x 1 dose 07/14 and redose 80 mg 07/16/22 as post HD level 1.3 7. D/C planning as above 8. This seems like urosepsis so leave HD catheter in place for now. 9. URR 67% which is just above the 65% minimum with a 3.5 hr run . Needs full 4 hourd Time Spent With Patient Time: Total time spent is greater than 50% in coordination of care (as documented) at patient's floor/unit and/or counseling patient:
[2022-07-16] MEDS: CARVEDILOL 12.5 MG TABLET PO SCH ×2 (08:06→17:33)
[2022-07-16] MEDS: INSULIN LISPRO 1 UNIT/0.01 ML UNIT SQ SCH ×4 (08:33→22:21)
[2022-07-16] MEDS: HYDROcodone/APAP 5/325MG TABLET PO PRN (08:34)
[2022-07-16] MEDS: OMEPRAZOLE 20 MG CAPSULE PO SCH (08:50)
[2022-07-16] MEDS: HEPARIN 5,000 UNIT/ML VIAL SQ SCH ×2 (09:42→22:20)
[2022-07-16] MEDS: INSULIN GLARGINE, HUMAN 1 UNIT/0.01 ML SQ SCH (09:43)
[2022-07-16] MEDS: ACETAMINOPHEN 325 MG TABLET PO PRN (10:22)
--- NOTE | 2022-07-16 12:16 | Internal Med Progress Note ---
SUBJECTIVE Subjective Patient information: Note initiated : 07/16/22 at 12:11 pm Service Date, if different from initiated Date: [] Patient: Yosef Chilel 61 y/o M admitted on 07/12/22 for fever,cough. Chief Complaint: [] Principal diagnosis: ESRD Interval history: Mr. Chilel is a 61 year old Male with a history of insulin-dependent diabetes mellitus, hypertension, hyperlipidemia, ESRD on hemodialysis Tuesday Fr iday, prior cerebellar stroke, sleep apnea, GERD who developed fevers and rigors 2 days prior to admission. The patient also says that he had a cough productive of yellowish sputum that started 3 days ago and also had burning on urination that started about 2 days ago. The patient also had intermittent chest discomforts and shortness of breath. The patient presented to the emergency department and was found to have a fever as well as a leukocytosis concerning for sepsis. Patient did have a urinalysis which was moderately suggestive of a UTI. Chest x-ray did not show any infiltrates, there was mild cardiomegaly. A CT abdomen and pelvis with contrast did not show any acute intra-abdominal or intrapelvic diseases or infectious processes. The patient's hemodialysis was malpositioned with the tip extending through the tricuspid valve into the right ventricle. Additionally, the patient was found to have hyperkalemia in the ED with a potassium level of 5.9. EKG did not show any changes secondary to hyperkalemia and also did not show any dynamic ischemic changes. Troponin level was normal. The patient was given vancomycin IV and ceftriaxone in the ED as well as calcium gluconate IV. Hospital medicine was asked to admit the patient for sepsis. Nephrology was notified regarding admission and felt the patient could be admitted to the [facility]. Unfortunately hemodialysis will not be available on the day of admission due to staffing. 07/13 The patient continues to have fevers, urine culture growing gram-negative bacilli. Started cefepime and discontinued ceftriaxone. Continue vancomycin IV dosed by pharmacy for now pending blood culture results. If blood cultures did not grow any organisms will discontinue vancomycin. Patient received hemodialysis today. Potassium level has normalized. 07/14 Patient had a high-grade temperatures overnight. Microbiology notified that gram-negative bacilli is E. coli very suspicious for ESBL. Meropenem started, discontinue the cefepime. 3/9 The patient did have a high-grade temperature overnight but no fevers. Leukocytosis improving. Blood cultures now resulting as E. coli, antibiotic sensitivities pending. Infectious disease consulted. Continues on meropenem. The patient feels like he is ready to go home. Discussed that we need to wait to decide on antibiotic coverage and also whether or not the patient can keep the hemodialysis catheter. Repeat blood cultures from the hemodialysis obtained today. Transfer to [facility]. 07/16 Afebrile overnight, the patient is feeling well and wants to go home. Discussed pending blood culture results and the uncertainty whether or not the patient w ill be able to keep the HD catheter. Repeat blood culture today from dialysis catheter and peripheral blood culture. Blood cultures from 07/13/2022, drawn from that hemodialysis catheter confirmed ESBL E. coli. The patient continues on renally dosed meropenem. Physical exam Head: Atraumatic, normal inspection. Eyes: normal appearance, no scleral icterus. Neck: full ROM Respiratory: no respiratory distress. Cardiovascular: normal rate and rhythm, S1, S2, right upper chest tunneled HD catheter GI/Abdominal: Obesely distended, soft, nontender, no guarding. Extremities: full range of motion, nontender. Neurological: CN II-XII intact, intact motor, intact sensation. Psychiatric: normal mood. Skin: warm, normal color Constitutional Vitals: Vital Signs Temp Pulse Resp BP Pulse Ox O2 Del Method O2 Flow Rate 98.4 F 80 16 129/81 100 Nasal Cannula 1 07/16/22 08:35 07/16/22 11:56 07/16/22 08:01 07/16/22 11:56 07/16/22 09:00 07/16/22 08:36 07/16/22 08:36 Period Temp Pulse Resp BP Sys/Matute Pulse Ox O2 Del Method O2 Flow Rate Last 24 Hr 97.6 F-98.8 F 73-98 11-18 89-175/55-94 89-100 Nasal Cannula- Room Air 1 Intake and Output 07/16/22 07/16/22 07/16/22 03:59 11:59 19:59 Intake Total 235 120 Balance 235 120 Intake & Output: Intake & Output 07/16/22 07/16/22 07/16/22 03:59 11:59 19:59 Intake Total 235 120 Balance 235 120 Intake: Oral 235 120 Other: Meal Breakfast Percent of Meal Consumed 100% Feeding Ability Independent Stool Size Moderate Stool Color Brown Stool Consistency Soft Liquid Loose # Bowel Movements 1 OBJ DATA Labs 07/16/22 05:11 07/16/22 05:12 Labs: Abnormal Lab Results 07/16/22 07/16/22 07/15/22 05:12 05:11 05:29 WBC 11.8 H RBC 3.62 L 3.60 L Hgb 10.4 L 10.5 L Hct 33.4 L 33.7 L RDW Immature Gran % (Auto) 3.8 H 1.4 H Lymph % (Auto) [place] % (Auto) 17.5 H 17.3 H [place] # (Auto) 1.86 H 2.04 H Immature Gran # 0.40 H 0.16 H Absolute Neutrophils Sodium 132 L Chloride 86 L Anion Gap 22.0 H BUN 50 H Creatinine 7.8 H* Glucose 177 H Phosphorus 7.1 H* ALT 41 H Alkaline Phosphatase 120 H Lactate Dehydrogenase 311 H NT-Pro-B Natriuret Pep Globulin 4.2 H Albumin/Globulin Ratio 0.9 L Triglycerides 394 H Procalcitonin 07/14/22 07/14/22 07/14/22 12:10 05:31 05:30 WBC RBC Hgb Hct RDW Immature Gran % (Auto) Lymph % (Auto) [place] % (Auto) [place] # (Auto) Immature Gran # Absolute Neutrophils Sodium 131 L Chloride 88 L Anion Gap 20.0 H BUN 48 H 43 H Creatinine 6.4 H* Glucose 123 H Phosphorus 5.6 H ALT Alkaline Phosphatase 129 H Lactate Dehydrogenase 286 H NT-Pro-B Natriuret Pep Globulin 4.4 H Albumin/Globulin Ratio 0.9 L Triglycerides 339 H Procalcitonin 10.33 H 07/14/22 07/13/22 05:30 11:50 WBC 18.6 H RBC 3.58 L Hgb 10.4 L Hct 32.9 L RDW 14.6 H Immature Gran % (Auto) 0.8 H Lymph % (Auto) 10.0 L [place] % (Auto) [place] # (Auto) 1.88 H Immature Gran # 0.14 H Absolute Neutrophils 14.51 H Sodium Chloride Anion Gap BUN Creatinine Glucose Phosphorus ALT Alkaline Phosphatase Lactate Dehydrogenase NT-Pro-B Natriuret Pep 7668.0 H Globulin Albumin/Globulin Ratio Triglycerides Procalcitonin Meds: Medications Acetaminophen (Acetaminophen 325 Mg Tablet) 650 mg PO Q6HP PRN; Protocol PRN Reason: Per Pain Protocol/Fever > 101 Last Admin: 07/16/22 10:22 Dose: 650 mg Hydrocodone Bitart/Acetaminophen (Hydrocodone/Apap 5/325mg Tablet) 1 tab PO Q4HP PRN; Protocol PRN Reason: Per Pain Protocol Last Admin: 07/16/22 08:34 Dose: 1 tab Aspirin (Aspirin 325 Mg Enteric Coated Tablet) 325 mg PO DAILY [facility] Last Admin: 07/15/22 08:46 Dose: 325 mg Atorvastatin Calcium (Atorvastatin 40 Mg Tablet) 80 mg PO HS [facility] Last Admin: 07/15/22 20:26 Dose: 80 mg Carvedilol (Carvedilol 12.5 Mg Tablet) 25 mg PO BIDCC [facility] Last Admin: 07/16/22 08:06 Dose: Not Given Dextrose (Dextrose 50% 50 Ml Vial) 0 ml IV UD PRN PRN Reason: Per Sliding Scale Diagnostic Test (Pha) (Accu-Chek 1 Each Strip) 1 each FS ACHS [facility] Last Admin: 07/16/22 08:32 Dose: 1 each Diazepam (Diazepam 5 Mg Tablet) 5 mg PO TIDP PRN PRN Reason: Anxiety Last Admin: 07/13/22 20:06 Dose: 5 mg Docusate Sodium (Docusate Sodium 100 Mg Capsule) 100 mg PO BID [facility] Last Admin: 07/15/22 20:26 Dose: 100 mg Gabapentin (Gabapentin 100 Mg Capsule) 100 mg PO QPM [facility] Last Admin: 07/15/22 20:26 Dose: 100 mg Glucose (Dextrose 31 Gm Oral.Susp) 15 gm PO PRN PRN PRN Reason: Hypoglycemia Heparin Sodium (Porcine) (Heparin 5,000 Unit/Ml Vial) 5,000 unit SQ Q12 [facility] Last Admin: 07/16/22 09:42 Dose: 5,000 unit Albumin Human (Buminate) 12.5 gm in 50 mls @ 100 mls/hr IV ONCE PRN PRN Reason: Hypotension Last Infusion: 07/14/22 14:50 Dose: Infused Albumin Human (Buminate) 12.5 gm in 50 mls @ 100 mls/hr IV PRN PRN PRN Reason: Hypotension Meropenem 1 gm/ Sodium (Chloride) 50 mls @ 100 mls/hr IV Q24H [facility] Last Infusion: 07/15/22 16:23 Dose: Infused Insulin Glargine (Insulin Glargine, Human 1 Unit/0.01 Ml) 20 unit SQ DAILY [facility] Last Admin: 07/16/22 09:43 Dose: 20 unit Insulin Human Lispro (Insulin Lispro 1 Unit/0.01 Ml Unit) 0 unit SQ ACHS [facility]; Protocol Last Admin: 07/16/22 08:33 Dose: Not Given Lactulose (Lactulose 20 Gm/30 Ml Oral.Erika) 10 gm PO DAILYP PRN PRN Reason: Constipation Last Admin: 07/15/22 08:50 Dose: 10 gm Omeprazole (Omeprazole 20 Mg Capsule) 20 mg PO QAM [facility] Last Admin: 07/16/22 08:50 Dose: Not Given Ondansetron HCl (Ondansetron 4 Mg/2 Ml Vial) 4 mg IV Q4HP PRN; Protocol PRN Reason: Nausea And Vomiting Oxycodone/Acetaminophen (Oxycodone/Apap 10/325mg Tablet) 1 tab PO Q4HP PRN; Protocol PRN Reason: Pain Last Admin: 07/16/22 02:25 Dose: 1 tab Senna (Sennosides 1 Tablet) 2 tab PO HSP PRN PRN Reason: Constipation Last Admin: 07/14/22 23:45 Dose: 2 tab Sodium Chloride (0.9 % Sodium Chloride 10 Ml Syringe) 10 ml IV Q8 [facility] Last Admin: 07/16/22 05:25 Dose: 10 ml A/P Narrative A/P Narrative: Assessment: 61-year-old male with a history of insulin-dependent diabetes mellitus, hypertension, hyperlipidemia, ESRD on hemodialysis via tunneled hemodialysis catheter, prior cerebellar stroke, sleep apnea, GERD admitted for sepsis secondary to UTI and complicated by ESBL E. coli. #Resolved sepsis secondary to UTI/pyelonephritis and ESBL E. coli bacteremia #Insulin-dependent diabetes mellitus #Chronic anemia due to ESRD #Hypertension #Hyperlipidemia #History of cerebellar stroke #Obstructive sleep apnea #GERD #Malpositioned tunneled HD catheter in right ventricle Plan -Continue renally dosed meropenem. Duration of treatment anticipated to do 2 to 3 weeks with either meropenem or ertapenem. -Follow urine and all blood cultures. -Increase Lantus to 30 units daily, increase correction Humalog SSI to high-dose dose. -Continue home aspirin, Lipitor, Coreg, omeprazole, Percocet. -Nephrology following. -Tele-infectious disease consulted. -Renal and diabetic diet. -PT consult. -DVT prophylaxis: Heparin SQ -Disposition: Inpatient MedSurg status. Awaiting final infectious disease recommendations regarding length of treatment and to determine if the HD catheter needs to be removed and replaced. Currently anticipating 2 to 3 weeks of a carbapenem for ESBL E. coli. Anticipate the patient will need a tunneled IJ PICC catheter placed by IR after discharge. If HD catheter is not removed, recommend IR considering pulling back the tunneled HD catheter out of the right ventricle. Plan of Treatment: 1. HD with increased fluid removal 2. Follow up cultures tomorrow from peripheral site and HD catheter. 3. Urine and blood cultures (+) GNR/and E coli respectively 4. Inflammatory biomarkers 5. MAGAN, Phosphate binders and Vit D analogues 6. Gent 165 mg x 1 dose 07/14 and check post HD level tomorrow to redose 7. Merropenin given by Hospital medicine 8. This seems like urosepsis so leave catheter in place for now. 9. URR 67% which is just above the 65% minimum with a 3.5 hr run Time Spent With Patient Time: Total time spent is greater than 50% in coordination of care (as documented) at patient's floor/unit and/or counseling patient: QUALITY VTE Deep Vein Thrombosis/Pulmonary Embolism Present on Admission: No
[2022-07-16] MEDS: DOCUSATE SODIUM 100 MG CAPSULE PO SCH ×2 (12:26→22:21)
[2022-07-16] MEDS: ASPIRIN 325 MG ENTERIC COATED TABLET PO SCH (12:26)
[2022-07-16] MEDS: LACTULOSE 20 GM/30 ML ORAL.SOL PO PRN (12:33)
[2022-07-16 13:55] LABS: Gentamicin,Random 1.3 ug/mL (<0.3)
[2022-07-16] MEDS: MEROPENEM 1 GM in 0.9 % SODIUM CHLORIDE 50 ML IV SCH (16:41)
[2022-07-16] MEDS ORDERED: GENTAMICIN PER PHARMACY IV ONE (17:08)
[2022-07-16] MEDS ORDERED: GENTAMICIN SULFATE 80 MG in 0.9 % SODIUM CHLORIDE 250 ML IV ONE (21:00)
[2022-07-16] MEDS ORDERED: GENTAMICIN SULFATE 80 MG/2 ML VIAL ONE (22:13)
[2022-07-16] MEDS: GABAPENTIN 100 MG CAPSULE PO SCH (22:21)
[2022-07-16] MEDS: ATORVASTATIN 40 MG TABLET PO SCH (22:21)
[2022-07-17] MEDS: oxyCODONE/APAP 10/325MG TABLET PO PRN (04:38)
[2022-07-17] MEDS: 0.9 % SODIUM CHLORIDE 10 ML SYRINGE IV SCH (04:39)
[2022-07-17] MEDS: CARVEDILOL 12.5 MG TABLET PO SCH (07:28)
[2022-07-17] MEDS: INSULIN LISPRO 1 UNIT/0.01 ML UNIT SQ SCH ×2 (07:29→14:28)
[2022-07-17] MEDS: HYDROcodone/APAP 5/325MG TABLET PO PRN (07:50)
[2022-07-17 07:56] LABS: ALT/SGPT 39 U/L (<40); AST/SGOT 31 U/L (<40); Albumin/Globulin Ratio 0.9 (1.0-2.3); Alkaline Phosphatase 124 U/L (39-117); Bilirubin,Direct < 0.2 mg/dL (0-0.3); Bilirubin,Total 0.2 mg/dL (0.1-1.0); Blood Urea Nitrogen 37 mg/dL (8-23); Calcium 9.2 mg/dL (8.6-10.4); Carbon Dioxide 26 mmol/L (22-30); Chloride 86 mmol/L (96-108); Globulin 4.3 gm/dL (2.2-3.7); Glomerular Filtration Rate 8; Glucose 249 mg/dL (70-105); Lactate Dehydrogenase 319 U/L (135-225); Phosphorous 5.5 mg/dL (2.5-4.5); Triglycerides 416 mg/dL (<150); Uric Acid 5.3 mg/dL (2.5-8.0)
[2022-07-17] MEDS ORDERED: INSULIN GLARGINE, HUMAN 1 UNIT/0.01 ML SQ SCH (09:00)
[2022-07-17] MEDS: DOCUSATE SODIUM 100 MG CAPSULE PO SCH (09:11)
[2022-07-17] MEDS: HEPARIN 5,000 UNIT/ML VIAL SQ SCH (09:11)
[2022-07-17] MEDS: ASPIRIN 325 MG ENTERIC COATED TABLET PO SCH (09:11)
[2022-07-17] MEDS: OMEPRAZOLE 20 MG CAPSULE PO SCH (09:11)
--- NOTE | 2022-07-17 09:18 | Discharge Summary ---
Discharge Provider Provider IMPORTANT FOLLOW-UP INFORMATION FOR PCP: Patient information: Note initiated : 07/17/22 at 9:05 am Service Date, if different from initiated Date: [] Patient: Yosef Chilel 61 y/o M admitted on 07/12/22 for fever,cough. Chief Complaint: [] Date of admission: 07/12/22 18:33 Discharge date: 07/17/22 Primary care physician: Margoth Azevedo Consults: 07/12/22 Consult to Physician [CONS] Stat Comment: Consulting Provider: Rainer Rincon Reason For Exam: Physician to Consult 07/12/22 15:05 Consult to Physician [CONS] Stat Comment: Consulting Provider: Reilly Liu Reason For Exam: Physician to Consult 07/12/22 19:14 Consult to Physician [CONS] Stat Comment: Consulting Provider: Reilly Liu Reason For Exam: Physician to Consult 07/15/22 09:26 Consult to Physician [CONS] Routine Comment: Consulting Provider: El Lara - ID Reason For Exam: Physician to Consult COURSE Hospital Course Hospital course: Mr. Chilel is a 61 year old Male with a history of insulin-dependent diabetes mellitus, hypertension, hyperlipidemia, ESRD on hemodialysis Tuesday, prior cerebellar stroke, sleep apnea, GERD who developed fevers and rigors 2 days prior to admission. The patient also says that he had a cough productive of yellowish sputum that started 3 days ago and also had burning on urination that started about 2 days ago. The patient also had intermittent chest discomforts and shortness of breath. The patient presented to the emergency department and was found to have a fever as well as a leukocytosis concerning for sepsis. Patient did have a urinalysis which was moderately suggestive of a UTI. Chest x-ray did not show any infiltrates, there was mild cardiomegaly. A CT abdomen and pelvis with contrast did not show any acute intra-abdominal or intrapelvic diseases or infectious processes. The patient's hemodialysis was malpositioned with the tip extending through the tricuspid valve into the right ventricle. Additionally, the patient was found to have hyperkalemia in the ED with a potassium level of 5.9. EKG did not show any changes secondary to hyperkalemia and also did not show any dynamic ischemic changes. Troponin level was normal. The patient was given vancomycin IV and ceftriaxone in the ED as well as calcium gluconate IV. Hospital medicine was asked to admit the patient for sepsis. Nephrology was notified regarding admission and felt the patient could be admitted to the [facility]. Unfortunately hemodialysis will not be available on the day of admiss ion due to staffing. 07/13 The patient continues to have fevers, urine culture growing gram-negative bacilli. Started cefepime and discontinued ceftriaxone. Continue vancomycin IV dosed by pharmacy for now pending blood culture results. If blood cultures did not grow any organisms will discontinue vancomycin. Patient received hemodialysis today. Potassium level has normalized. 07/14 Patient had a high-grade temperatures overnight. Microbiology notified that gram-negative bacilli is E. coli very suspicious for ESBL. Meropenem started, discontinue the cefepime. 07/15 The patient did have a high-grade temperature overnight but no fevers. Leukocytosis improving. Blood cultures now resulting as E. coli, antibiotic sensitivities pending. Infectious disease consulted. Continues on meropenem. The patient feels like he is ready to go home. Discussed that we need to wait to decide on antibiotic coverage and also whether or not the patient can keep the hemodialysis catheter. Repeat blood cultures from the hemodialysis obtained today. Transfer to [facility]. 07/16 Afebrile overnight, the patient is feeling well and wants to go home. Discussed pending blood culture results and the uncertainty whether or not the patient will be able to keep the HD catheter. Repeat blood culture today from dialysis catheter and peripheral blood culture. Blood cultures from 07/13/2022, drawn from that hemodialysis catheter confirmed ESBL E. coli. The patient continues on renally dosed meropenem. 07/17 Afebrile overnight, the patient feels well. [place] blood cultures not growing any organisms. The plan is to discharge the patient today to home and continue IV meropenem via a peripherally inserted venous catheter at the infusion center. I spoke with the interventional radiologist, Dr. Gary, at [facility] who said he would be able to place a tunneled PICC line on 07/20/2022. After the patient has the tunneled PICC line he will continue IV antibiotics at the infusion center with that catheter. I am discharging the patient on 14 more days of renally dosed meropenem which is 1 g IV every 24 hours. The patient will need to have his meropenem infusion after hemodialysis on dialysis days. I also discussed this discharge plan with Dr. Liu and he is okay with that. Blood cultures will need to be followed up after discharge to ensure there are no positive blood cultures. If there are no positive blood cultures and I believe the hemodialysis catheter can be salvaged. I did discuss the malpositioned hemodialysis catheter which is curren tly in the right ventricle with Dr. Gary and he will evaluate that as well when he sees the patient. The patient will follow up with infectious disease via the tele infectious disease clinic to determine the length of dosing and also follow-up on weekly CBC, CMP and CRP. As the patient had urinary retention during the hospitalization, I also placed a referral to urology at his family's request. All other home medications resumed as prior to hospital admission. Physical exam Head: Atraumatic, normal inspection. Eyes: normal appearance, no scleral icterus. Neck: full ROM Respiratory: Right tunneled HD catheter, no respiratory distress. Cardiovascular: normal rate and rhythm, S1, S2, right upper chest tunneled HD catheter GI/Abdominal: Obesely distended, soft, nontender, no guarding. Extremities: full range of motion, nontender. Neurological: CN II-XII intact, intact motor, intact sensation. Psychiatric: normal mood. Skin: warm, normal color Discharge diagnosis: ESBL E. coli bacteremia Secondary discharge diagnosis: Pyelonephritis secondary to ESBL E. coli ESRD on hemodialysis via HD catheter Urinary retention Time Spent with Patient Time attestation: Total time spent providing and/or coordinating discharge services: Time spent: Greater than 30 minutes EXAM Constitutional Vitals: Temp Pulse Resp BP Pulse Ox O2 Del Method O2 Flow Rate 98.8 F 89 14 115/68 95 Room Air 1 07/17/22 07:17 07/17/22 07:17 07/17/22 07:17 07/17/22 07:17 07/17/22 07:17 07/17/22 07:17 07/16/22 12:15 Discharge Data Data Completed and Pending Labs on day of discharge: Labs from last 24 hours 07/17/22 07/16/22 05:28 12:00 Sodium 131 L Potassium 3.9 Chloride 86 L Carbon Dioxide 26 Anion Gap 19.0 H BUN 37 H Creatinine 6.4 H* GFR Calculation 8 Glucose 249 H Uric Acid 5.3 Calcium 9.2 Phosphorus 5.5 H Magnesium 2.2 Total Bilirubin 0.2 Direct Bilirubin < 0.2 GGT 49 AST 31 ALT 39 Alkaline Phosphatase 124 H Lactate Dehydrogenase 319 H Total Protein 8.3 Albumin 4.0 Globulin 4.3 H Albumin/Globulin Ratio 0.9 L Triglycerides 416 H Random Gentamicin 1.3 H Preliminary micro results at discharge 07/15/22 07:58 Blood Culture - Preliminary Blood - [facility] 07/15/22 07:57 Blood Culture - Preliminary Blood - [facility] 07/12/22 12:36 Blood Culture - Preliminary Blood 07/12/22 12:30 Blood Culture - Preliminary Blood 07/13/22 08:50 Blood Culture - Preliminary Blood - [facility] Escherichia coli 07/13/22 08:43 Blood Culture - Preliminary Blood - [facility] Escherichia coli Discharge Plan Patient/Caregiver Discharge Instructions Activity: increase activity as tolerated Diet: Renal/Consistent Carbs Prescriptions: New meropenem 1 gram recon soln 1 g IV QDAY 14 Days Qty: 14 0RF Rx Instructions: Give after hemodialysis on dialysis days. Continued tramadol 50 mg tablet 25 mg PO BID PRN (Reason: pain) Qty: 30 0RF insulin glargine [Lantus Solostar U-100 Insulin] 100 unit/mL (3 mL) insulin pen 37 unit subcut QAM Qty: 15 3RF (DME) True Metrix Glucose Test Strip Strip See Rx Instructions .Route Qty: 100 1RF Rx Instructions: Use to check blood glucose twice daily fasting and once after largest meal aspirin 325 mg tablet 325 mg PO QDAY (DME) lancets [BD Ultra-Fine II Lancets] 30 gauge misc See Rx Instructions .Route Rx Instructions: As directed insulin lispro [Humalog KwikPen Insulin] 100 unit/mL insulin pen 15 unit subcut TID Qty: 15 3RF Rx Instructions: uses with sliding scale carvedilol [Coreg] 25 mg tablet 25 mg PO BID Qty: 180 2RF Rx Instructions: must administer with a meal/food glipizide 10 mg tablet 10 mg PO BID Qty: 180 3RF torsemide 100 mg tablet 100 mg PO BID Qty: 180 4RF verapamil 180 mg Tablet Extended Release 180 mg PO QDAY PRN (Reason: Increased Blood Pressure) Patient Comments: PT STATES HE TAKES THIS WHEN HIS SBP REMAINS >150 (DME) pen needle, diabetic 32 gauge x 5/32" needle MISCELLANEOUS QDAY atorvastatin 80 mg tablet 80 mg PO QPM omeprazole 20 mg capsule,delayed release(DR/EC) 20 mg PO QAM gabapentin 100 mg capsule 100 mg PO QPM oxycodone-acetaminophen [Endocet] 10-325 mg tablet 1 tab PO Q4H PRN (Reason: Pain) Qty: 30 0RF Other Ambulatory Orders: Complete Blood Count (WEEKLY) Timeframe: 20220719 Facility: [facility] - Location: Laboratory Ordered By: Rainer Rincon Complete Blood Count (WEEKLY) Timeframe: 20220726 Facility: [facility] - Location: Laboratory Ordered By: Rainer Rincon Comprehensive Metabolic Panel (WEEKLY) Timeframe: 20220719 Facility: [facility] - Location: Laboratory Ordered By: Rainer Rincon Comprehensive Metabolic Panel (WEEKLY) Timeframe: 20220726 Facility: [facility] - Location: Laboratory Ordered By: Rainer Rincon C-Reactive Protein (WEEKLY) Timeframe: 20220719 Facility: [facility] - Location: Laboratory Ordered By: Rainer Rincon C-Reactive Protein (WEEKLY) Timeframe: 20220726 Facility: [facility] - Location: Laboratory Ordered By: Rainer Rincon Follow Up Plan Follow up with: Jovon Gary MD [Physician] - 07/20/22 (Post hospital follow up for tunneled PICC line for outpatient IV antibotic. ) Max Barnett MD [Physician] - (Urinary retention, family requested referral. ) Margoth Azevedo ARNP [Primary Care Provider] - Patient Disposition: Home, Self-Care Plan of Treatment: 1. HD with increased fluid removal 2. Follow up sensitivities to meropemen from peripheral site and HD catheter repeat culture 3. Urine and blood cultures (+) E coli 4. Inflammatory biomarkers 5. MAGAN, Phosphate binders and Vit D analogues 6. Gent 165 mg x 1 dose 07/14 and redose 80 mg 07/16/22 as post HD level 1.3 7. D/C planning as above 8. This seems like urosepsis so leave HD catheter in place for now. 9. URR 67% which is just above the 65% minimum with a 3.5 hr run . Needs full 4 hourd Prognosis: Fair Overall status at discharge: patient is progressing back to baseline Discharge Orders: Discharge Order (Routine); Ordered 07/17/22 Ordered By: Rainer MEDINA VTE Deep Vein Thrombosis/Pulmonary Embolism Present on Admission: No
== END 2022-07-17 13:30 | disposition home or self-care (01) | DRG 871 ==
LOC: ED 11:50 → ICU 18:33 → MEDSUR 07-16 14:38
PROVIDERS: ADMIT Internal Medicine; ATTEND Internal Medicine